=== PATIENT | male | born 1960 | race Caucasian/White ===

== ENCOUNTER 2025-01-27 12:13 | Outpatient (REF) | payer OTHER, SELFPAY ==
[2025-01-27 12:35] LABS: MANUAL DIFF FLAG NO
[2025-01-27 13:13] LABS: Hematocrit 42.8 % (42.0-52.0); Hemoglobin 14.4 g/dl (14.0-18.0); Imm Gran Abs Auto 0.02 X10*3/uL (0.00-0.03); Imm Gran Pct Auto 0.3 % (0.0-0.4); Lymphocytes Absolute Auto 2.9 X10*3/uL (1.2-4.9); Mean Corpuscular HGB Conc 33.6 g/dl (31.0-36.0); Mean Corpuscular Hemoglobin 29.9 pg (27.0-33.0); Mean Corpuscular Volume 89.0 fL (80.0-98.0); NRBC Abs Auto 0.000 X10*3/uL (0.0-0.012); NRBC Pct Auto 0.0 /100WBC (0.0-0.2); Platelet Count 308 X10*3/uL (160-400); Red Blood Count 4.81 X10*6/uL (4.60-5.80); White Blood Count 6.8 X10*3/uL (4.8-10.8)
[2025-01-27 13:43] LABS: Alanine Aminotransferase 15 U/L (0-40); Albumin Level 4.4 g/dL (3.5-5.0); Alkaline Phosphatase 82 U/L (39-117); Anion Gap 13 (12-20); Aspartate Amino Transferase 20 U/L (5-37); Blood Urea Nitrogen 24 mg/dL (9-16); Calcium 9.5 mg/dL (8.4-10.2); Carbon Dioxide 22 mmol/L (22-29); Chloride 108 mmol/L (96-108); Cholesterol 205 mg/dL (<200); Estimated Glomerular Filt Rate > 60; HDL Cholesterol 38 mg/dL (>40); Potassium 4.5 mmol/L (3.3-5.1); Sodium 138 mmol/L (135-145); Total Protein 7.3 g/dL (6.5-8.0); Triglycerides 163 mg/dL (<150)
[2025-01-27 14:02] LABS: PSA,Total (Free>4and<10) 0.81 ng/mL (0.00-4.00)
== END 2025-01-27 12:14 | disposition home or self-care (01) ==
LOC: HO.LAB 12:13
PROVIDERS: PCP Internal Medicine Medical Oncology; Visit Provider Internal Medicine Medical Oncology
DX: Z00.00 Encounter for general adult medical examination without abnormal findings (principal); I10 Essential (primary) hypertension; E78.2 Mixed hyperlipidemia; E66.3 Overweight; M25.552 Pain in left hip; R35.1 Nocturia
CPT/HCPCS: 36415; 80053; 80061; 84153; 85025

== ENCOUNTER → 2025-02-28 12:54 | Day surgery (SDC) | payer OTHER, SELFPAY ==
--- OUTSIDE RECORDS SUMMARY | 2025-02-02 14:21 | XMS_ITS | Patient Health Record ---
Author Organization Sudhakar Gonzalez III, MD Address [address] [place] [address] Care Team Providers Care Pullman Car Clerk Name Role Phone Sudhakar Gonzalez Primary Care Provider Allergies Allergen (clinical drug ingredient) Drug/Non Drug [...] 0.2 - 1.3 BLD Positive Negative - Complete Blood Count Auto Di ff Reviewed date:02/01/2025 09:20:46 AM Interpretation: Performing Lab:[facility], [address] [place] [phone] Notes/Report: White Blood Count 6.8 4.8-10.8 X10*3/uL Red Blood Count 4.81 4.60-5.80 X10*6/uL Hemoglobin 14.4 14.0-18.0 g/dl Hematocrit 42.8 42.0-52.0 % Mean Corpuscular Volume 89.0 80.0-98.0 fL Mean Corpuscular Hemoglobin 29.9 27.0-33.0 pg Mean Corpuscular HGB Conc 33.6 31.0-36.0 g/dl Red Cell Distribution Width 12.6 11.0-16.0 % Platelet Count 308 160-400 X10*3/uL Mean Platelet Volume 9.4 9.4-12.4 fL Neutrophils Percent Auto 43.9 45-73 % Imm Gran Pct Auto 0.3 0.0-0.4 % Lymphocytes Percent Auto 43.3 20-40 % Monocytes Percent Auto 9.5 2-11 % Eosinophils Percent Auto 2.1 0-4 % Basophils Percent Auto 0.9 0-2 % NRBC Pct Auto 0.0 0.0-0.2 /100WBC Neutrophils Absolute Auto 3.0 2.0-8.3 x10*3/u L Imm Gran Abs Auto 0.02 0.00-0.03 X10*3/uL Lymphocytes Absolute Auto 2.9 1.2-4.9 X10*3/u L Monocytes Absolute Auto 0.6 0.1-1.2 X10*3/uL Eosinophils Absolute Auto 0.1 0.0-0.4 X10*3/u L Basophils Absolute Auto 0.1 0.0-0.2 X10*3/uL NRBC Abs Auto 0.000 0.0-0.012 X10*3/uL Comprehensive Irons. Panel Fa st Reviewed date:02/01/2025 09:20:46 AM Interpretation: Performing Lab:[facility], [address] [place] [phone] Notes/Report: Sodium 138 135-145 mmol/L Potassium 4.5 3.3-5.1 mmol/L Chloride 108 96-108 mmol/L Carbon Dioxide 22 22-29 mmol/L Anion Gap 13 12-20 Blood Urea Nitrogen 24 9-16 mg/dL Creatinine 0.92 0.5-1.4 mg/dL Estimated Glomerular Filt Rate > 60 Chronic Kidney Disease: Estimated GFR < 60 mL/min/1.73m2 Severe Kidney Disease: Estimated GFR < 15 mL/min/1.73m2 Glucose Fasting 91 60-99 mg/dL Calcium 9.5 8.4-10.2 mg/dL Bilirubin Total 0.6 0.0-1.0 mg/dL Aspartate Amino Transferase 20 5-37 U/L Alanine Aminotransferase 15 0-40 U/L Total Protein 7.3 6.5-8.0 g/dL Albumin Level 4.4 3.5-5.0 g/dL Alkaline Phosphatase 82 39-117 U/L Lipid Panel Reviewed date:02/01/2025 09:20:46 AM Interpretation: Performing Lab:[facility], [address] [place] [phone] Notes/Report: Triglycerides 163 <150 mg/dL Desirable Triglyceride: less than 150 mg/dL Borderline High Triglyceride 150-199 mg/dL High Triglyceride: 200-499 mg/dL Very High Triglyceride: greater than or equal to 5OO mg/dL Cholesterol 205 <200 mg/dL Desirable Cholesterol: less than 200 mg/dL Borderline High Cholesterol: 200-239 mg/dL High Cholesterol: greater than 239 mg/dL LDL Cholesterol Calculated 135 <100 mg/dL Desirable LDL: less than 100 mg/dL Near Optimal/Above Optimal LDL: 110-129 mg/dL Borderline High LDL: 130-159 mg/dL High LDL: 160-189 mg/dL Very High LDL: greater than or equal to 190 mg/dL HDL Cholesterol 38 >40 mg/dL Desirable HDL: greater than 40 mg/dL Note: This HDL assay may give artificially low results in patients with liver disease. PSA,Total (Free>4and<10) Reviewed date:02/01/2025 09:20:46 AM Interpretation: Performing Lab:[facility], [address] [place] [phone] Notes/Report: PSA,Total (Free>4and<10) 0.81 0.00-4.00 ng/mL A Free PSA was not performed: The percentage of Free PSA can be used to enhance the differentiation of prostate cancer from benign prostatic disease in subjects whose PSA levels are between 4.0 and 10.0 ng/mL. For subjects whose PSA levels are below 4.0 or above 10.0 ng/mL, the risk of prostate cancer is determined on the basis of the PSA alone. Therefore the % Free PSA is recommended only for those subjects whose PSA levels are between 4.0 and 10.0 ng/mL. PSA methodology: Pimentel Alinity i Chemiluminescent Microparticle Immunoassay (CMIA) Reason For Referral Reason evaluate and treatme nt ? surgery needed left hip pain Diagnosis 1 Left hip pain (M25.5 52) Referral Organization Sudhakar Gonzalez III, MD Referring Provider First Name Sudhakar Referring Provider Last Name Carlos Referring Provider Speciality Internal M edicine Referred Provider Ramon Espino [facility] Referred Provider Specialty Orthopedic S urgery General Notes Mayra Gates 11/14/2024 09:35:21 AM > Referral, covered sheet, progress note faxed. Referral Priority Routine Referral Appointment Date 01/02/2025 Reason screening colonoscop y over due Diagnosis 1 Colon cancer screeni sudhakar (Z12.11) Referral Organization Sudhakar Gonzalez III, MD Referring Provider First Name Sudhakar Referring Provider Last Name Carlos Referring Provider Speciality Internal M edicine Referred Provider Dmitri Gao Referred Provider Specialty Gastroentero logy General Notes S Sho CONTENT DIRECTOR 11/08 02:54:54 PM > I called Dr Gao office made patient appt for 02/02/2025 T 3:15PM with Dr Gao for consultation then the coloscopy will be scheduled / appt information called and mailed to patient Referral Priority Routine Referral Appointment Date 02/02/2025 Medications Medication SIG (Take, Route, Frequency, Duration) Notes Start Date End Date Status Albuterol Sulfate HFA 108 (90 Base) MCG/ACT 1 puff as needed Inhalation every 4 hrs 11/08/2019 Active Simvastatin 40 MG 1 tablet Orally in t he evening for 90 days Active Lisinopril 10 MG TAKE 1 TABLET BY MERT TH EVERY DAY Active Viagra 100 MG 1 tablet as needed O rally Once a day for 30 days Active Primatene Mist 0.125 MG/ACT 2 puffs Inhalation 6 hours As needed Active Immunizations Vaccine Route Administration Date Status Comme nts COVID PFIZER Unknown 10/13/2020 Administered COVID PFIZER Unknown 09/20/2020 Administered COVID 19 Moderna Unknown 06/12/2021 Administered Social History Tobacco Use: Social History Observation Description Date Details (start date - stop date) Former Smoker NA - NA Tobacco Control (Standard) Question Answer Notes Tobacco use: Former smoker How long has it been since you last smoked? Grea ter than 10 years Additional Findings: Tobacco non-user Ex-cigaret te smoker Problems Problem Type SNOMED Code ICD Code Onset Dates Problem Status W/U Status Risk Notes Problem 3221758 Former smoker (Z87.891) Active confirmed He has a strategy to prevent relapse in times of stress and illness. We discussed this at some length today. Problem 714830278 Overweight (E66.3) Active confirmed He has lost 12 pounds since his last visit and his body mass index is 27. We discussed ways progress her weight loss could be continued. We reviewed the elements of a healthy diet and exercise. Problem 04159363 Left hip pain (M25.552) Active confirmed I have referred him back to the orthopedic service to consider a left hip replacement. Problem 293816975 Mixed hyperlipidemia (E78.2) Active confirmed Comprehensive blood work with a fasting lipid profile has been ordered. We discussed the elements of a healthy diet today. Problem 779841578 Nocturia (R35.1) Active confirmed Problem Erectile dysfunction, unspecified erectile dysfunction type (N52.9) Active confirmed This problem has been addressed and he is responding to oral medication. Problem 10042726 Essential hypertension (I10) Active confirmed His blood pressure is currently in the normal range. He has lost 12 pounds. I recommended aggressive weight loss and sodium restriction. No change in his medications as necessary today. Problem 884528836 Mild intermittent asthma without complication (J45.20) Active confirmed He has used his inhaler occasionally but he is comfortable most of the day. No change in his regimen as needed. 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 He will let me know if this becomes an issue. Problem 829109649 History of left inguinal hernia (Z98.890) Active confirmed No hernia was detected today on the examination. Vital Signs Heart Rate 73 /min 11/08/2024 Temperature 98.2 degrees Fahrenheit 11/08/2024 Blood pressure diastolic 79 mm Hg 11/08/2024 Height 68 in 11/08/2024 Blood pressure systolic 133 mm Hg 11/08/2024 Weight 182 lbs 11/08/2024 BMI 27.67 kg/m2 11/08/2024 Encounters Encounter Location Date Provider Diagnosis Sudhakar Gonzalez III, MD [address] [place] [address] [place], [place] [address] 11/08/2024 Sudhakar Gonzalez Essential hypertensi on I10 ; Left hip pain M25.552 ; Mixed hyperlipidemia E78.2 ; Overweight E66.3 ; Nocturia R35.1 ; Erectile dysfunction, unspecified erectile dysfunction type N52.9 ; Mild intermittent asthma without complication J45.20 ; Spondylosis of cervical region without myelopathy or radiculopathy M47.812 ; Former smoker Z87.891 and History of left inguinal hernia Z98.890 Sudhakar Gonzalez III, MD [address] [place] [address] [address] [place], [place] [address] 10/18/2024 Sudhakar Gonzalez Assessments Encounter Date Diagnosis (ICD Code) Assessment Notes Treat ment Notes Treatment Clinical Notes 11/08/2024 Left hip pain (ICD-1 0 - M25.552) I have referred him back to the orthopedic service to consider a left hip replacement. 11/08/2024 Essential hypertension (ICD-10 - I10) His blood pressure is currently in the normal range. He has lost 12 pounds. I recommended aggressive weight loss and sodium restriction. No change in his medications as necessary today. 11/08/2024 Mixed hyperlipidemia (ICD-10 - E78.2) Comprehensive [...] today on the examination. Plan Of Treatment Pending Test Test Name Order Date PROFILE, FASTING (COMPREHENSIVE METABOLI C) 12/21/2018 PROFILE, FASTING (COMPREHENSIVE METABOLI C) 12/20/2019 PROFILE, FASTING (COMPREHENSIVE METABOLI C) 11/08/2024 PROFILE, FASTING (COMPREHENSIVE METABOLI C) 05/02/2019 PROFILE, RANDOM (COMPREHENSIVE METABOLIC ) 02/06/2020 LIPID PANEL 05/02/2019 LIPID PANEL 02/06/2020 LIPID PANEL 12/21/2018 LIPID PANEL 12/20/2019 PSA, TOTAL 12/20/2019 PSA, TOTAL 11/08/2024 CBC w DIFF 12/20/2019 CBC w DIFF 11/08/2024 CBC w DIFF 05/02/2019 CBC w DIFF 02/06/2020 CBC w DIFF 12/21/2018 XR CHEST 2 VIEW PA & LAT 11/08/2024 Lipid Panel 11/08/2024 ECG 12 lead EKG 11/08/2024 Next Appt Details Provider Name:Sudhakar Gonzalez, 02/06/2025 02:30:00 PM, [address] [place] [address] , [address], [place], [address], Insurance Providers Payer Name Payer Address Payer Phone Subscriber Number Group Number Insured Name Patient Relationship to Insured Coverage Start Date Coverage End Date [employer] [address] [address] [place] [address] [id number] Julia Lopez Spouse - patient is the spouse of the insured Medical (General) History Medical History History ICD Code asthma essential hypertension mixed hyperlipidemia cervical spondylosis erectile dysfunction 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 BMI 27 history of prepared left inguinal hernia former smoker colonoscopy Surgical History Surgery Date(Month/Year) colonoscopy, [facility], Dr. Dmitri Gao, negative findings 2017 right hip replacement, [facility], Dr. Rubio, aseptic necrosis left inguial hernia repair, [facility], Dr. Allie Francis
--- OUTSIDE RECORDS SUMMARY | 2025-02-02 14:22 | XMS_ITS | Patient Health Record ---
Author Organization [facility] Address [address] [place] [address] Care Team Providers Care Clothes Ironer Name Role Phone Sudhakar Gonzalez MD Primary Care Provider UnavailDmitri Bernstein Jr Unavailable Allergies Allergen (clinical drug ingredient) Drug/Non Drug Allergy documented on EMR Reaction Allergy Type Onset Date Status cats (uncoded) Unknown Allergy Activ e Reason For Referral No Information Medications Medication SIG (Take, Route, Fr equency, Duration) Notes Start Date End Date Status Simvastatin 40 MG TAKE 1 TABLET EVERY EVENING Oral for 90 Active Lisinopril 10 MG TAKE 1 TABLET DAILY Oral for 90 Active Immunizations Vaccine Route Administration Date Status Comme nts Influenza Unknown 09/30/2018 Refused Influenza Unknown 02/02/2025 Refused Social History Tobacco Use: Social History Observation Description Date Details (start date - stop date) Never Smoker NA - NA Tobacco Use/Smoking Question Answer Notes Patient is a nonsmoker Alcohol Screen Question Answer Notes Did you have a drink contain ing alcohol in the past year? Yes How often did you have a dri nk containing alcohol in the past year? Never (0 point) How many drinks did you have on a typical day when you were drinking in the past year? 1 or 2 drinks (0 point) How often did you have 6 or more drinks on one occasion in the past year? Never (0 point) Points 0 Interpretation Negative Problems Problem Type SNOMED Code ICD Code Onset Dates Problem Status W/U Status Risk Notes Problem 254184491 Colon cancer screening (Z12.11) Active confirmed Problem 409718209 Encounter for other preprocedural examination (Z01.818) Active confirmed Vital Signs Temperature 98.6 degrees Fahrenheit 02/02/2025 Blood pressure diastolic 01 mm Hg 02/02/2025 Height 68 in 02/02/2025 Blood pressure systolic 001 mm Hg 02/02/2025 Weight 188 lbs 02/02/2025 BMI 28.58 kg/m2 02/02/2025 Encounters Encounter Location Date Provider Diagnosis [facility] [address] [place] [address] 02/02/2025 Dmitri Gao Jr Colon cancer screening Z12.11 and Encounter for other preprocedural examination Z01.818 Assessments Encounter Date Diagnosis (ICD Code) Assessment Notes Treatment Notes Treatment Clinical Notes Section Notes 02/02/2025 Colon cancer screening (ICD-10 - Z12.11) 02/02/2025 Encounter for other preprocedural examination (ICD-10 - Z01.818) Plan Of Treatment Future Test Test Name Order Date COLONOSCOPY 09/30/2018 COLONOSCOPY 02/02/2025 Next Appt Details Provider Name:Dmitri vasquez Jr, 02/28/2025 02:10:00 PM, [address] [place] [address] , [place], [phone], Insurance Providers Payer Name Payer Address Payer Phone Subscriber Number Group Number Insured Name Patient Relationship to Insured Coverage Start Date Coverage End Date [employer] (No Referra l) [address] [address] [place] [address] [id number] ROXANA DRUMMOND Self - patient is the insured 2023 5 Medical (General) History Medical History History ICD Code hypertension elevated cholesterol Surgical History Surgery Date(Month/Year) hip replacement, right left inguinal herniorrhaphy
--- OUTSIDE RECORDS SUMMARY | 2025-02-02 14:22 | XMS_ITS | Clinical Summary ---
Author Organization [facility] Address [address] [facility] [address] [place] [address] Phone Care Team Providers Care E M Assembler Name Role Phone Sudhakar Gonzalez MD Primary Care Provider [phone] Allergies No known active allergies Medications lisinopril (PRINIVIL,ZESTR IL) 10 MG tablet Take 1 tablet by mouth every morning. 09/04/2023 Active simvastatin (ZOCOR) 40 MG tablet Take 40 mg by mouth nightly at bedtime. 09/15/2023 Active Active Problems No known active problems Social History Tobacco Use Types Packs/Day Years Used Date Smoking Tobacco: Never Smokeless Tobacco: Never Tobacco Cessation:Counseling Given: Not Answered Education Answer Date Recorded Are you interested in more education? Not on gianni e 09/21/2023 Are you concerned about learning? Not on file 09/21/2023 No 09/21/2023 No 09/21/2023 Digital Access Answer Date Recorded No 09/21/2023 No 09/21/2023 Reliable internet access at home? Not on file 09/21/2023 Device with a working camera? Not on file Sex and Gender Information Value Date Recorded Sex Assigned at Not on file Legal Sex Male 9:51 PM EDT Gender Identity Not on file Sexual Orientation Not on file Last Filed Vital Signs Vital Sign Reading Time Taken Comments Blood Pressure 162/95 09/21/2023 6:15 PM EDT Pulse 66 09/21/2023 6:15 PM EDT Temperature 36.6 C (97.8 F) 09/21/2023 6:15 PM EDT Respiratory Rate 18 09/21/2023 6:15 PM EDT Oxygen Saturation 97% 09/21/2023 6:15 PM EDT Inhaled Oxygen Concentration - - Weight - - Height - - Body Mass Index - - Plan of Treatment Health Maintenance Due Date Last Done Comments Adult Td,Tdap Booster 1960 CREATININE LEVEL 1960 LIPID PANEL 1958 POTASSIUM LEVEL 1958 DEPRESSION SCREENING 1970 HEPATITIS C SCREENING 02/21/1976 COLOGUARD 2003 COLONOSCOPY 2003 COLORECTAL CANCER SCREENING 2003 FIT TEST 2003 FOBT 2003 SIGMOIDOSCOPY 2003 VIRTUAL COLONOSCOPY 2003 PNEUMOCOCCAL VACCINES (50+ years) (1 of 1 - PCV) 02/21/2008 ZOSTER VACCINES (1 of 2) 02/21/2008 COVID-19 VACCINE (4 - 2023-2 5 season) 2024 06/12/2021, 10/13/2020, 09/20/2020 RSV VACCINE (1 - 1-dose 75+ series) 2033 SMOKING STATUS SCREENING (On ce After 26 Yrs) Completed 09/21/2023 HEPATITIS A VACCINES Aged Out No long er eligible based on patient's age to complete this topic HIB VACCINES Aged Out No longer eligi ble based on patient's age to complete this topic MENINGOCOCCAL VACCINES (ACWY) Aged Out No longer eligible based on patient's age to complete this topic MENINGOCOCCAL VACCINES (B) Aged Out N o longer eligible based on patient's age to complete this topic Medical Devices Not on file Insurance [facility] AETNA PPO [facility] [employer] PPO [facility]PO [facility] [employer]ET[employer] PPO [facility] AETNA PPO [employer] Care Teams E M Assembler Relationship Specialty Start Date End Date Sudhakar Gonzalez MD [address] [place] [id number] PCP - General Medical Oncology 09/21/23 Additional Source Comments The information contained in this document represents components of the legal health record. It is not the complete legal health record.[facility]
[2025-02-24 14:01] VITALS: BMI 28.6
--- NOTE | 2025-02-27 12:19 | HO.ANESPROP2 ---
HPI - Anesthesia Eval Consult details Narrative: 65yo M for Colonoscopy [facility] Past Medical History Medical History (Updated 02/24/25 @ 14:02 by Susan Stoddard RN) Elevated cholesterol HTN (hypertension) Surgical History Surgical History (Updated 02/24/25 @ 14:03 by Susan Stoddard RN) H/O colonoscopy History of total right hip replacement Hx of left inguinal hernia repair Social History Social History (Updated 02/24/25 @ 14:02 by Susan Stoddard RN) Household Members: Spouse Meds Allergies Allergy/AdvReac Type Severity Reaction Status Date / Time No Known Allergies Allergy Mild NONE Unverified 03/22/20 17:33 Home Medications ?Medication ?Instructions ?Recorded ?Confirmed ?Last Taken ?Type lisinopril 10 mg tablet 10 mg PO DAILY 02/24/25 02/24/25 Unknown History sildenafil 100 mg tablet 100 mg PO DAILY 02/24/25 02/24/25 Unknown History simvastatin 40 mg tablet 40 mg PO BEDTIME 02/24/25 02/24/25 Unknown History Exam Height,Weight and Vital Signs: Height 5 ft 8 in Weight 85.275 kg Assessment and Plan Assessment Anesthesia Assessment: Chart Reviewed
== END ==
LOC: HO.SSS 12:55
PROVIDERS: PCP Internal Medicine Medical Oncology; Visit Provider Internal Medicine Gastroenterology
DX: Z12.11 Encounter for screening for malignant neoplasm of colon (principal); Z53.8 Procedure and treatment not carried out for other reasons; I10 Essential (primary) hypertension; E78.00 Pure hypercholesterolemia, unspecified; Z79.899 Other long term (current) drug therapy; Z98.890 Other specified postprocedural states

== ENCOUNTER 2025-03-13 15:56 | Outpatient (REF) | payer OTHER, SELFPAY ==
--- OUTSIDE RECORDS SUMMARY | 2024-11-08 10:00 | XMS_ITS ---
Author Organization Sudhakar Gonzalez III, MD Address [address] [place] [place] [address] Care Team Providers Care Cleat Thrower Name Role Phone Sudhakar Gonzalez Primary Care Provider [phone] Allergies Allergen (clinical drug ingredient) Drug/Non Drug [...] Provider Speciality Internal M edicine Referred Provider [facility], [facility] Referred Provider Specialty Orthopedic S urgery General Mayra Shannon 11/14/2024 09:35:21 AM > Referral, covered sheet, progress note faxed. Referral Priority Routine Referral Appointment Date 01/02/2025 Reason screening colonoscop y over due Diagnosis 1 Colon cancer screeni ng (Z12.11) Referral Organization Sudhakar Gonzalez III, MD Referring Provider First Name Sudhakar Referring Provider Last Name Gonzalez Referring Provider Speciality Internal M edicine Referred Provider Dmitri Gao Referred Provider Specialty Gastroentero marianna General Notes Sho Ellison MICROBIOLOGY MANAGER 11/08 02:54:54 PM > I called Dr [...] Never (0 point) Points 2 Interpretation Negative Problems Problem Type SNOMED Code ICD Code Onset Dates Problem Status W/U Status Risk Notes Problem 691569333 Nocturia (R35.1) Active confirmed Vital Signs Temperature 98.2 degrees Fahrenheit 11/09/19 25 Blood pressure systolic 133 mm Hg 11/09/19 25 Blood pressure diastolic 79 mm Hg 025 Heart Rate 73 /min 11/08/2024 Height 68 in 11/08/2024 Weight 182 lbs 11/08/2024 BMI 27.67 kg/m2 11/08/2024 Encounters Encounter Location Date Provider Diagnosis Sudhakar Gonzalez III, MD [address] [place] [address] [address] [place], [place] [address] 11/08/2024 Sudhakar Gonzalez Essential hypertensi on I10 [...] needed left hip pain, [facility] [place] 11/08/2024 11/08/2024, joannein g colonoscopy over due, Dmitri Gao Next Appt Details Follow Up: after patient goe s to [facility], Reason: OV review labs cxr ekg Provider Name:Sudhakar Gonzalez, 04/10/2025 03:00:00 PM, [address] [place] [address] [address], [place], [address], Provider Name:Sudhakar Gonzalez, 11/10/2025 03:30:00 PM, [address] [place] [address] [place], [address], Progress Notes * Rodney DRUMMONDDOB:[birth year] (64 yo M)Acc No.[id number]:11/08/2024 Progress Notes Patient: Rodney ESPARZA Provider: Alphonso Gonzalez MD :1960 A ge:64 Y S ex:Male Date:11/08/2024 [id number] Subjective: * Chief Complaints: * A nnual [...] previous surgery was done by orthopedics at [facility]. His last colonoscopy was at [facility], [place]. He has been referred to GI and [...] Surgical History: l eft inguial hernia repair, [facility], [place], Dr. Allie Francis 2007right hip replacement, [facility], Dr. Rubio, aseptic necrosis colonoscopy, [facility], [place], Dr. Dmitri Gao, negative findings 2017 * [...] P oints 2 I nterpretation N egative H stevo was born at [facility] in [place], [place]. He has been to Julia for 18 years. They have no children but he has 4 children from a previous marriage. He is a [employer] working in [employer]. * Medications: T akingPrimatene Mist 0.125 MG/ACT [...] Examination: G eneral Examination: GENERAL APPEARANCE: p asael, well nourished, well developed, in no acute [...] fasting lipid profile has been ordered. W e discussed the elements of a healthy diet [...] Follow Up: a fter patient goes to [facility] (Reason: OV review labs cxr ekg) * Images: * Sign off status: Completed true * Provider: Alphonso Gonzalez MD Date: 0 11/08/2024 Generated for Prosperi ng/Binh/eTransmitting on: 0 03/13/2025 06:39 PM EDT History and Physical Notes * [...] motion LYMPH NODES: no enlarged lymph no regsi,spleen normal RECTAL EXAM: not examined PSYCH: alert, oriented ORAL CAVITY: normal, unremarkable Consultation Request Notes Referral Date Referring Provider Referred Provider Not es 11/08/2024 Sudhakar Gonzalez [place] [facility] evaluate and treatment ? surgery needed left hip pain 11/08/2024 Sudhakar Gonzalez Bernard screening colonoscopy over due
--- OUTSIDE RECORDS SUMMARY | 2024-12-21 12:45 | XMS_ITS ---
Author Organization Sudhakar Gonzalez III, MD Address [address] [place] [address] Care Team Providers Care Landscape Foreman Name Role Phone Sudhakar Gonzalez Primary Care Provider REASON FOR VISIT Follow-up Encounters Encounter Location Date Provider Diagnosis Sudhakar Gonzalez III, MD [address] [place] [address] [place] [address] 12/21/2024 Sudhakar Gonzalez Plan Of Treatment Next Appt Details Provider Name:Sudhakar Gonzalez, 04/10/2025 03:00:00 PM, [address] [place] [address] [place], [address], Provider Name:Sudhakar Gonzalez, 11/10/2025 03:30:00 PM, [address] [place] [address] [place], [address], Progress Notes * Rodney DRUMMONDDOB:[birth year] (65 yo M)Acc No.[id number]:12/21/2024 Progress Notes Patient: Reina Rodney EID Provider: Alphonso Gonzalez MD :1960 A ge:64 Y S ex:Male Date:12/21/2024 Address:[address] [place], [place] [id number] Subjective: * Chief Complaints: * 1 . [...] for Efren de la fuente/Binh/Yolanda on: 0 03/13/2025 06:39 PM EDT
--- OUTSIDE RECORDS SUMMARY | 2025-01-10 13:00 | XMS_ITS ---
Author Organization Sudhakar Gonzalez III, MD Address [address] [place] [address] Care Team Providers Care Curing Bin Operator Name Role Phone Sudhakar Gonzalez Primary Care Provider [phone] REASON FOR VISIT Follow-up Encounters Encounter Location Date Provider Diagnosis Sudhakar Gonzalez III, MD [address] [place] [address] [place] [address] 01/10/2025 Sudhakar Gonzalez Plan Of Treatment Next Appt Details Provider Name:Sudhakar Gonzalez, 04/10/2025 03:00:00 PM, [address] [place] [address] [place], [address], Provider Name:Sudhakar Gonzalez, 11/10/2025 03:30:00 PM, [address] [place] [address] [place], [address], Progress Notes * Rodney DRUMMONDDOB:[birth year] (65 yo M)Acc No.[id number]:01/10/2025 Progress Notes Patient: Reina Rodney EID Provider: Alphonso Gonzalez MD :1960 A ge:64 Y S ex:Male Date:01/10/2025 Address:[address] [place], [place] [phone] Subjective: * Chief Complaints: * 1 . [...]
--- OUTSIDE RECORDS SUMMARY | 2025-02-06 10:30 | XMS_ITS ---
Author Organization Sudhakar Gonzalez III, MD Address [address] [place] [address] [place] [phone] Care Team Providers Care Geospatial Intelligence Analyst Name Role Phone Sudhakar Gonzalez Primary Care [...] Date Provider Diagnosis Sudhakar Gonzalez III, MD [address] [place] [address] [place] [phone] 02/06/2025 Sudhakar Gonzalez Essential hypertensi on I10 [...] Details Provider Name:Sudhakar Mayerrne, 04/10/2025 03:00:00 PM, [address] [place] [address] [address], [place], [phone], Provider Name:Sudhakar Carlos, 11/10/2025 03:30:00 PM, [address] [place] [address] [address], [place], [address], Progress Notes * Rodney DRUMMONDDOB:[birth year] (65 yo M)Acc No.[id number]:02/06/2025 Progress Notes Patient: Reina LUOHEBER Rodney Provider: Alphonso Gonzalez MD :1960 A ge:64 Y S ex:Male Date:02/06/2025 Address:[address] [place], [place] [id number] Subjective: * Chief Complaints: * 1 . [...] the right hip, total knee replacement 2014, [facility], overweight. BMI 27, History of prepared left inguinal hernia, Former smoker, Colonoscopy. * Surgical History: l eft inguial hernia repair, [facility], Dr. Allie Francis , right hip replacement, [facility], Dr. Rubio, aseptic necrosis , colonoscopy, [facility], Dr. Dmitri Gao, negative findings 2017. * [...] x-cigarette smoker Estela whiteside was born at [facility] in [place], [place]. He has been to Julia for 18 years. They have no children but he has 4 children from a previous marriage. He is a [employer] working in [place]. * Medications: Tanesha mai Lisinopril 10 MG [...] Generated for Efren de la fuente/Binh/Tyraitting on: 03/13/2025 06:39 PM EDT History and Physical [...]
--- OUTSIDE RECORDS SUMMARY | 2025-02-28 08:10 | XMS_ITS ---
Author Organization [facility] Address [address] [place] [phone] Care Team Providers Care Physics Technical Officer Name Role Phone Carlos WELLER, Sudhakar Primary Care Provider Dmitri Villatoro Jr REASON FOR VISIT screening Encounters Encounter Location Date Provider Diagnosis [facility] [address] [place] [phone] 02/28/2025 Dmitri Gao Jr Plan Of Treatment No Information Progress Notes * ROXANA DRUMMOND EDOB:1959 (65 yo M)Acc No.[id number]:02/28/2025 COLON WITH MAC Patient: Reina LUOHEBER ROXANA Conrad Provider: Gali Gao MD :1960 A ge:65 Y S ex:Male Date:02/28/2025 Address:[address] [place], [place] [id number] Pcp:Sudhakar Gonzalez MD Subjective: * Chief Complaints: * 1 . Screening. * Medical History: Objective: * Vitals: Assessment: Plan: * Treatment: * * The named appointment provid er may or may not be the originator of this progress note, and it is not deemed complete until electronically signed by the appointment provider. Sign off status: Pending * Provider: Gali Gao MD Date: 0 02/28/2025 Generated for Printi ng/Faxing/eTransmitting on: 0 03/13/2025 06:40 PM EDT
--- OUTSIDE RECORDS SUMMARY | 2025-03-13 11:30 | XMS_ITS ---
Author Organization Sudhakar Gonzalez III, MD Address [address] [place] [address] Care Team Providers Care Magnetic Tester Name Role Phone Sudhakar Gonzalez Primary Care Provider Allergies Allergen (clinical drug ingredient) Drug/Non Drug Allergy documented on EMR Reaction Allergy Type Onset Date Status Pollen (e.g. tree, grass) Unknown Allergy Active REASON FOR VISIT Clearance for Left Hip replacement at [facility] on 03/17/2025 Medications Medication SIG (Take, Route, Frequency, Duration) [...] has it been since you last smoked? Gerardo ter than 10 years Additional Findings: Tobacco non-user Ex-cigaret te smoker Vital Signs Temperature 97.3 degrees Fahrenheit 03/13/20 25 Blood pressure systolic 136 mm Hg 03/13/20 25 Blood pressure diastolic 80 mm Hg 025 Heart Rate 75 /min 03/13/2025 Height 68 in 03/13/2025 Weight 191 lbs 03/13/2025 BMI 29.04 kg/m2 03/13/2025 Oximetry 99 % 03/13/2025 Encounters Encounter Location Date Provider Diagnosis Sudhakar Gonzalez III, MD [address] [place] [address] [place] [address] 03/13/2025 Sudhakar Carlos Essential hypertensi on I10 ; Pain of left hip M25.552 and Pre-op exam Z01.818 Assessments Encounter Date Diagnosis (ICD Code) Assessment Notes Treat ment Notes Treatment Clinical Notes 03/13/2025 Essential hypertension (ICD-10 - I10) His blood pressure is currently in the normal range. He has lost 12 pounds. I recommended aggressive weight loss and sodium restriction. No change in his medications as necessary today. 03/13/2025 Pain of left hip (ICD-10 - M25.552) 03/13/2025 Pre-op exam (ICD-10 - Z01.818) Plan Of Treatment Medication Medication Name Sig [...] (PTT) 2024 ECG 12 lead EKG 03/13/2025 Hemoglobin A1c 03/13/2025 Next Appt Details Follow Up: 4 Weeks, Reason: ov review labs Provider Name:Sudhakar Gonzalez, 04/10/2025 03:00:00 PM, [address] [place] [address] [address], [place], [phone], Provider Name:Sudhakar Gonzalez, 11/10/2025 03:30:00 PM, [address] [place] [address] [place], [address], Progress Notes * Jeanne DRUMMOND:[birth year] (65 yo M)Acc No.[id number]:03/13/2025 Patient: Rodney ESPARZA Provider: Alphonso Gonzalez MD :1960 A ge:65 Y S ex:Male Date:03/13/2025 Address:[address] [place] [address] Subjective: * Chief Complaints: * 1 . Clearance for Left Hip replacement at [facility] on 03/17/2025. * HPI: C OVID-19 Screening: left thr fridai marion, no sob nocp no palp, noct x1. Questions H ave you had any new [...] the right hip, total knee replacement 2014, [facility], overweight. BMI 27, History of repaired left inguinal hernia, Former smoker, Colonoscopy. * Surgical History: l eft inguial hernia repair, [facility], Dr. Allie Francis , right hip replacement, [facility], Dr. Rubio, aseptic necrosis , colonoscopy, [facility], Dr. Dmitri Gao, negative findings 2017. [...] x-cigarette smoker Estela whiteside was born at [facility] in [place], [place]. He has been to Julia for 18 years. They have no children but he has 4 children from a previous marriage. He is a [employer] working in [place]. * Medications: T aking Lisinopril 10 MG Tablet TAKE 1 TABLET [...] ollen (e.g. tree, grass). Objective: * Vitals: H t: 68, Wt:191, BMI:29.04, BP:136/80, HR:75, Temp:97.3, Oxygen sat %:99, Wt-k.64. * P ast Orders: L ab:Complete Blood Count Auto Diff (Order Date - 01/27/2025) (Collection Date & Time - 01/27/2025 12:34 PM) Value Reference Range White Blood Count 6.8 4.8-10.8 - X10*3/uL Red Blood Count 4.81 4.60-5.80 - X10*6/uL Hemoglobin 14.4 14.0-18.0 - g/dl Hematocrit 42.8 42.0-52.0 - % Mean Corpuscular Volume 89.0 80.0-98.0 - fL Mean Corpuscular Hemoglobin 29.9 27.0-33.0 - pg Mean Corpuscular HGB Conc 33.6 31.0-36.0 - g/ dl Red Cell Distribution Width 12.6 11.0-16.0 - % Platelet Count 308 160-400 - X10*3/uL Mean Platelet Volume 9.4 9.4-12.4 - fL Neutrophils Percent Auto 43.9 L 45-73 - % Imm Gran Pct Auto 0.3 0.0-0.4 - % Lymphocytes Percent Auto 43.3 H 20-40 - % Monocytes Percent Auto 9.5 2-11 - % Eosinophils Percent Auto 2.1 0-4 - % Basophils Percent Auto 0.9 0-2 - % NRBC Pct Auto 0.0 0.0-0.2 - /100WBC Neutrophils Absolute Auto 3.0 2.0-8.3 - x10* 3/uL Imm Gran Abs Auto 0.02 0.00-0.03 - X10*3/uL Lymphocytes Absolute Auto 2.9 1.2-4.9 - X10* 3/uL Monocytes Absolute Auto 0.6 0.1-1.2 - X10*3/ uL Eosinophils Absolute Auto 0.1 0.0-0.4 - X10* 3/uL Basophils Absolute Auto 0.1 0.0-0.2 - X10*3/ uL NRBC Abs Auto 0.000 0.0-0.012 - X10*3/uL L ab:Comprehensive [place]. Panel Fast (Order Date - 01/27/2025) (Collection Date & Time - 01/27/2025 12:34 PM) Value Reference Range Sodium 138 135-145 - mmol/L Bilirubin Total 0.6 0.0-1.0 - mg/dL Aspartate Amino Transferase 20 5-37 - U/L Alanine Aminotransferase 15 0-40 - U/L Total Protein 7.3 6.5-8.0 - g/dL Albumin Level 4.4 3.5-5.0 - g/dL Alkaline Phosphatase 82 39-117 - U/L Potassium 4.5 3.3-5.1 - mmol/L Chloride 108 96-108 - mmol/L Carbon Dioxide 22 22-29 - mmol/L Anion Gap 13 12-20 - Blood Urea Nitrogen 24 H 9-16 - mg/dL Creatinine 0.92 0.5-1.4 - mg/dL Estimated Glomerular Filt Rate > 60 - Glucose Fasting 91 60-99 - mg/dL Calcium 9.5 8.4-10.2 - mg/dL L ab:PSA,Total (Free>4and<10) (Order Date - 01/27/2025) (Collection Date & Time - 01/27/2025 12:34 PM) Value Reference Range PSA,Total (Free>4and<10) 0.81 0.00-4.00 - ng/ mL L ab:Lipid Panel (Order Date - 01/27/2025) (Collection Date & Time - 01/27/2025 12:34 PM) Value Reference Range Triglycerides 163 H <150 - mg/dL Cholesterol 205 H <200 - mg/dL LDL Cholesterol Calculated 135 H <100 - mg/dL HDL Cholesterol 38 L >40 - mg/dL * Examination: G eneral Examination: GENERAL [...] change in his medications as necessary today. 2 . P ain of left hip - M25.552 3 . P re-op exam - Z01.818? Plan: * Treatment: 2. P ain of left hip L AB: PROFILE, RANDOM (COMPREHENSIVE METABOLIC) L AB: CBC w DIFF L AB: PROTHROMBIN TIME (PT, INR) L AB: PARTIAL THROMBOPLASTIN TIME (PTT) L AB: Hemoglobin A1c I maging: ECG 12 lead EKG 3. P re-op exam L AB: PROFILE, RANDOM (COMPREHENSIVE METABOLIC) L AB: CBC w DIFF L AB: PROTHROMBIN TIME (PT, INR) L AB: PARTIAL THROMBOPLASTIN TIME (PTT) L AB: Hemoglobin A1c I maging: ECG 12 lead EKG 4. O thers Continue Lisinopril Tablet, 10 MG, TAKE 1 TABLET BY MOUTH EVERY DAY; C ontinue Simvastatin Tablet, 40 MG, 1 tablet, Orally, in the evening; C ontinue Primatene Mist Aerosol, 0.125 MG/ACT, 2 puffs, Inhalation, 6 hours As needed. * Procedure Codes: 9 4760 MEASURE BLOOD OXYGEN LEVEL * Follow Up: 4 Weeks (Reason: ov review labs) * Images: * The named appointment provid er may or may not be the originator of this progress note, and it is not deemed complete until electronically signed by the appointment provider. Sign off status: Pending * Provider: Alphonso Gonzalez MD Date: 0 03/13/2025 Generated for Efren de la fuente/Binh/Tyraitting on: 0 03/13/2025 06:39 PM EDT History [...]
[2025-03-13 16:17] LABS: MANUAL DIFF FLAG NO
[2025-03-13 17:15] LABS: Hematocrit 44.5 % (42.0-52.0); Hemoglobin 14.3 g/dl (14.0-18.0); Imm Gran Abs Auto 0.04 X10*3/uL (0.00-0.03); Imm Gran Pct Auto 0.4 % (0.0-0.4); Lymphocytes Absolute Auto 3.1 X10*3/uL (1.2-4.9); Mean Corpuscular HGB Conc 32.1 g/dl (31.0-36.0); Mean Corpuscular Hemoglobin 28.9 pg (27.0-33.0); Mean Corpuscular Volume 89.9 fL (80.0-98.0); NRBC Abs Auto 0.000 X10*3/uL (0.0-0.012); NRBC Pct Auto 0.0 /100WBC (0.0-0.2); Platelet Count 328 X10*3/uL (160-400); Red Blood Count 4.95 X10*6/uL (4.60-5.80); White Blood Count 9.0 X10*3/uL (4.8-10.8)
[2025-03-13 17:19] LABS: INTERNATIONAL NORM RATIO 0.9 (0.9-1.1); Prothrombin Time 10.6 SEC (10.9-12.4)
[2025-03-13 17:22] LABS: Partial Thromboplastin Time 29.2 SEC (26.7-34.1)
[2025-03-13 17:46] LABS: Alanine Aminotransferase 39 U/L (0-40); Albumin Level 4.9 g/dL (3.5-5.0); Alkaline Phosphatase 80 U/L (39-117); Anion Gap 15 (12-20); Aspartate Amino Transferase 34 U/L (5-37); Blood Urea Nitrogen 18 mg/dL (9-16); Calcium 9.8 mg/dL (8.4-10.2); Carbon Dioxide 23 mmol/L (22-29); Chloride 106 mmol/L (96-108); Estimated Glomerular Filt Rate > 60; Potassium 4.7 mmol/L (3.3-5.1); Sodium 139 mmol/L (135-145); Total Protein 8.0 g/dL (6.5-8.0)
--- OUTSIDE RECORDS SUMMARY | 2025-03-13 18:39 | XMS_ITS | Patient Health Record ---
Author Organization Sudhakar Gonzalez III, MD Address [address] [place] [address] Care Team Providers Care Chief Design Engineer Name Role Phone Sudhakar Gonzalez Primary Care Provider [phone] Allergies Allergen (clinical drug ingredient) Drug/Non Drug [...] ff Reviewed date:02/01/2025 09:20:46 AM Interpretation: Performing Lab:[facility], [address] [place] [phone] Notes/Report: White Blood Count 6.8 4.8-10.8 X10*3/uL [...] NRBC Abs Auto 0.000 0.0-0.012 X10*3/uL Comprehensive [place]. Panel Fa st Reviewed date:02/01/2025 09:20:46 AM Interpretation: Performing Lab:[facility], [address] [place] [phone] Notes/Report: Sodium 138 135-145 mmol/L Potassium 4.5 [...] Panel Reviewed date:02/01/2025 09:20:46 AM Interpretation: Performing Lab:[address] [address] Notes/Report: Triglycerides 163 <150 mg/dL Desirable Triglyceride: [...] (Free>4and<10) Reviewed date:02/01/2025 09:20:46 AM Interpretation: Performing Lab:[address] [address] Notes/Report: PSA,Total (Free>4and<10) 0.81 0.00-4.00 ng/mL A [...] Pimentel Alinity i Chemiluminescent Microparticle Immunoassay (CMIA) Complete Blood Count Auto Di ff (Not yet reviewed by provider) Interpretation: Performing Lab:[address] [phone] Notes/Report: White Blood Count 9.0 4.8-10.8 X10*3/uL Red Blood Count 4.95 4.60-5.80 X10*6/uL Hemoglobin 14.3 14.0-18.0 g/dl Hematocrit 44.5 42.0-52.0 % Mean Corpuscular Volume 89.9 80.0-98.0 fL Mean Corpuscular Hemoglobin 28.9 27.0-33.0 pg Mean Corpuscular HGB Conc 32.1 31.0-36.0 g/dl Red Cell Distribution Width 12.7 11.0-16.0 % Platelet Count 328 160-400 X10*3/uL Mean Platelet Volume 9.2 9.4-12.4 fL Neutrophils Percent Auto 54.0 45-73 % Imm Gran Pct Auto 0.4 0.0-0.4 % Lymphocytes Percent Auto 35.0 20-40 % Monocytes Percent Auto 7.7 2-11 % Eosinophils Percent Auto 2.3 0-4 % Basophils Percent Auto 0.6 0-2 % NRBC Pct Auto 0.0 0.0-0.2 /100WBC Neutrophils Absolute Auto 4.8 2.0-8.3 x10*3/u L Imm Gran Abs Auto 0.04 0.00-0.03 X10*3/uL Lymphocytes Absolute Auto 3.1 1.2-4.9 X10*3/u L Monocytes Absolute Auto 0.7 0.1-1.2 X10*3/uL Eosinophils Absolute Auto 0.2 0.0-0.4 X10*3/u L Basophils Absolute Auto 0.1 0.0-0.2 X10*3/uL NRBC Abs Auto 0.000 0.0-0.012 X10*3/uL Prothrombin Time INR (Not ye t reviewed by provider) Interpretation: Performing Lab:[facility], [address] [place] [phone] Notes/Report: Prothrombin Time 10.6 10.9-12.4 SEC INTERNATIONAL NORM RATIO 0.9 0.9-1.1 INTERNATIONAL NORMALIZED RATIO (INR) REFERENCE RANGES Reference Range For patients not on anticoagulant therapy: 0.9 - 1.1 INR ranges for oral anticoagulant therapy: For prevention and treatment of venous thrombosis and pulmonary embolism: 2.0 - 3.0 For acute myocardial infarction with aspirin therapy: 2.0 - 3.0 For acute myocardial infarction without aspirin therapy: 3.0 - 4.0 For patients with mechanical prosthetic heart valves: 2.5 - 3.5 Partial Thromboplastin Time (Not yet reviewed by provider) Interpretation: Performing Lab:[facility], [address] [place] [phone] Notes/Report: Partial Thromboplastin Time 29.2 26.7-34.1 SEC Comprehensive Met. Panel (No t yet reviewed by provider) Interpretation: Performing Lab:[facility], [address] [place] [phone] Notes/Report: Sodium 139 135-145 mmol/L Potassium 4.7 3.3-5.1 mmol/L Chloride 106 96-108 mmol/L Carbon Dioxide 23 22-29 mmol/L Anion Gap 15 12-20 Blood Urea Nitrogen 18 9-16 mg/dL Creatinine 0.88 0.5-1.4 mg/dL Estimated Glomerular Filt Rate > 60 Chronic Kidney Disease: Estimated GFR < 60 mL/min/1.73m2 Severe Kidney Disease: Estimated GFR < 15 mL/min/1.73m2 Glucose Random 79 60-115 mg/dL Calcium 9.8 8.4-10.2 mg/dL Bilirubin Total 0.6 0.0-1.0 mg/dL Aspartate Amino Transferase 34 5-37 U/L Alanine Aminotransferase 39 0-40 U/L Total Protein 8.0 6.5-8.0 g/dL Albumin Level 4.9 3.5-5.0 g/dL Alkaline Phosphatase 80 39-117 U/L Reason For Referral Reason evaluate and treatme nt ? surgery needed left hip pain Diagnosis 1 Left hip pain (M25.5 52) Referral Organization Sudhakar Gonzalez III, MD Referring Provider First Name Sudhakar Referring Provider Last Name Carlos Referring Provider Speciality Internal M edicine Referred Provider [place] Referred Provider Specialty Orthopedic S urgery General Notes DMayra 11/14/2024 09:35:21 AM > Referral, covered sheet, progress note faxed. Referral Priority Routine Referral Appointment Date 01/02/2025 Reason screening colonoscop y over due Diagnosis 1 Colon cancer screeni (Z12.11) Referral Organization Sudhakar Gonzalez III, MD Referring Provider First Name Sudhakar Referring Provider Last Name Gonzalez Referring Provider Speciality Internal M edicine Referred Provider Dmitri Gao Referred Provider Specialty Gastroentero logy General Notes Sho Ellison MARINE ELECTRICIAN APPRENTICE 11/08 02:54:54 PM > I called Dr [...] needed Inhalation every 4 hrs 11/08/2019 Active Immunizations Vaccine Route Administration Date Status [...] Problem Status W/U Status Risk Notes Problem 1172752 Former smoker (Z87.891) Active confirmed He has a strategy to prevent relapse in times of stress and illness. We discussed this at some length today. Problem 488253676 Overweight (E66.3) Active confirmed He has lost 12 pounds since his last visit and his body mass index is 27. We discussed ways progress her weight loss could be continued. We reviewed the elements of a healthy diet and exercise. Problem 81280156 Left hip pain (M25.552) Active confirmed I have referred him back to the orthopedic service to consider a left hip replacement. Problem 360057497 Mixed hyperlipidemia (E78.2) Active confirmed Comprehensive blood work with a fasting lipid profile has been ordered. We discussed the elements of a healthy diet today. Problem 786797302 Nocturia (R35.1) Active confirmed Problem Erectile dysfunction (disorder) (841100497) Erectile dysfunction, unspecified erectile dysfunction type (N52.9) Active confirmed This problem has been addressed and he is responding to oral medication. Problem 39640935 Essential hypertension (I10) Active confirmed His blood pressure is currently in the normal range. He has lost 12 pounds. I recommended aggressive weight loss and sodium restriction. No change in his medications as necessary today. Problem 936032132 Mild intermittent asthma without complication (J45.20) Active confirmed He has used his inhaler occasionally but he is comfortable most of the day. No change in his regimen as needed. 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 He will let me know if this becomes an issue. Problem 550978485 History of left inguinal hernia (Z98.890) Active confirmed No hernia was detected today on the examination. Vital Signs Heart Rate 75 /min 03/13/2025 Temperature 97.3 degrees Fahrenheit 03/13/2025 Oximetry 99 % 03/13/2025 Blood pressure diastolic 80 mm Hg 03/13/2025 Height 68 in 03/13/2025 Blood pressure systolic 136 mm Hg 03/13/2025 Weight 191 lbs 03/13/2025 BMI 29.04 kg/m2 03/13/2025 Encounters Encounter Location Date Provider Diagnosis Sudhakar Gonzalez III, MD [address] [place] [address] [place] [address] 03/13/2025 Sudhakar Gonzalez Essential hypertensi on I10 ; Pain of left hip M25.552 and Pre-op exam Z01.818 Sudhakar Gonzalez III, MD [address] [place] [address] [place] [address] 11/08/2024 Sudhakar Gonzalez Essential hypertensi on I10 ; Left hip pain M25.552 ; Mixed hyperlipidemia E78.2 ; Overweight E66.3 ; Nocturia R35.1 ; Erectile dysfunction, unspecified erectile dysfunction type N52.9 ; Mild intermittent asthma without complication J45.20 ; Spondylosis of cervical region without myelopathy or radiculopathy M47.812 ; Former smoker Z87.891 and History of left inguinal hernia Z98.890 Sudhakar Gonzalez III, MD [address] [place] [address] [address] [place] [address] 10/18/2024 Sudhakar Gonzalez Assessments Encounter Date Diagnosis [...] Pain of left hip (ICD-10 - M25.552) 11/08/2024 Mixed hyperlipidemia (ICD-10 - E78.2) Comprehensive blood work with a fasting lipid profile has been ordered. We discussed the elements of a healthy diet today. 03/13/2025 Pre-op exam (ICD-10 - Z01.818) 11/08/2024 Overweight (ICD-10 - E66.3) He has [...] 05/02/2019 PROFILE, RANDOM (COMPREHENSIVE METABOLIC ) 02/06/2020 PROFILE, RANDOM (COMPREHENSIVE METABOLIC ) 03/13/2025 LIPID PANEL 05/02/2019 LIPID PANEL 02/06/2020 LIPID PANEL 12/21/2018 LIPID PANEL 12/20/2019 PSA, TOTAL 12/20/2019 PSA, TOTAL 11/08/2024 CBC w DIFF 12/20/2019 CBC w DIFF 03/13/2025 CBC w DIFF 11/08/2024 CBC w DIFF 05/02/2019 CBC w DIFF 02/06/2020 CBC w DIFF 12/21/2018 PROTHROMBIN TIME (PT, INR) 03/13/2025 PARTIAL THROMBOPLASTIN TIME (PTT) 2024 XR CHEST 2 VIEW PA & LAT 11/08/2024 Complete Blood Count Auto Diff Prothrombin Time INR 03/13/2025 Partial Thromboplastin Time 03/13/2025 Comprehensive Met. Panel 03/13/2025 Lipid Panel 11/08/2024 ECG 12 lead EKG 11/08/2024 ECG 12 lead EKG 03/13/2025 Hemoglobin A1c 03/13/2025 Next Appt Details Provider Name:Sudhakar Gonzalez, 04/10/2025 03:00:00 PM, [address], [place], [address], Provider Name:Sudhakar Gonzalez, 11/10/2025 03:30:00 PM, [address] [place] [address] [address], [place], [address], Insurance Providers Payer Name Payer Address Payer Phone Subscriber Number Group Number Insured Name Patient Relationship to Insured Coverage Start Date Coverage End Date [employer] [address] [address] [place] [phone] [id number] Julia Lopez Spouse - patient is the spouse of the insured Medical (General) History Medical History History ICD Code asthma essential hypertension mixed hyperlipidemia cervical spondylosis erectile dysfunction 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 BMI 27 history of repaired left inguinal hernia former smoker colonoscopy Surgical History Surgery Date(Month/Year) colonoscopy, [facility], Dr. Dmitri Gao, negative findings 2017 right hip replacement, [facility], Dr. Rubio, aseptic necrosis left inguial hernia repair, [facility], Dr. Allie Francis
--- OUTSIDE RECORDS SUMMARY | 2025-03-13 18:39 | XMS_ITS | Patient Health Record ---
Author Organization [facility] Address [address] [place] [address] Care Team Providers Care Software Testing Specialist Name Role Phone Sudhakar Gonzalez MD Primary [...] Problem Status W/U Status Risk Notes Problem 643186246 Colon cancer screening (Z12.11) Active confirmed Problem 390450642 Encounter for other preprocedural examination (Z01.818) Active confirmed Vital Signs Temperature 98.6 degrees Fahrenheit 02/02/2025 Blood pressure diastolic 01 mm Hg 02/02/2025 Height 68 in 02/02/2025 Blood pressure systolic 001 mm Hg 02/02/2025 Weight 188 lbs 02/02/2025 BMI 28.58 kg/m2 02/02/2025 Encounters Encounter Location Date Provider Diagnosis [facility] [address] [place] [address] 02/02/2025 Dmitri Gao Jr Colon cancer screening Z12.11 and Encounter for other preprocedural examination Z01.818 [facility] [address] [place] [address] 02/21/2025 Dmitri Gao Jr [facility] [address] [place] [phone] 03/01/2025 Dmitri Gao Jr Assessments Encounter Date Diagnosis (ICD Code) Assessment Notes Treatment Notes Treatment Clinical Notes Section Notes 02/02/2025 Colon cancer screening (ICD-10 - Z12.11) We discussed colonoscopy today. We discussed risks and benefits of the procedure today. He is advised to stop Aleve 1 week before the procedure. 02/02/2025 Encounter for other preprocedural examination (ICD-10 - Z01.818) We discussed colonoscopy today. We discussed risks and benefits of the procedure today. He is advised to stop Aleve 1 week before the procedure. Plan Of Treatment Future Test Test Name Order Date COLONOSCOPY 09/30/2018 COLONOSCOPY 02/02/2025 Insurance Providers Payer Name Payer Address Payer Phone Subscriber Number Group Number Insured Name Patient Relationship to Insured Coverage Start Date Coverage End Date [employer] (No Referra l) [address] [address] [place] [address] [id number] ROXANA DRUMMOND Self - patient is the insured 2023 Medical (General) History Medical History History ICD Code hypertension elevated cholesterol Surgical History Surgery Date(Month/Year) hip replacement, right left inguinal herniorrhaphy
--- OUTSIDE RECORDS SUMMARY | 2025-03-13 18:39 | XMS_ITS | Clinical Summary ---
Author Organization [facility] Address [address] [place] [address] Phone Care Team Providers Care Mill Crane Operator Name Role Phone Sudhakar Gonzalez MD Primary Care Provider [phone] Allergies No known active allergies Medications lisinopril [...] 02/21/2008 ZOSTER VACCINES (1 of 2) 02/21/2008 INFLUENZA VACCINE (#1) 2025 COVID-19 VACCINE ( - 2024-2 6 season) 2025 06/12/2021, 10/13/2020, 09/20/2020 RSV VACCINE (1 - [...] topic Medical Devices Not on file Insurance [facility] AETNA PPO [facility] AETNA PPO [facility] PPO [facility]ETNA PPO [facility] T PPO [facility] AETNA PPO [employer] Care Teams Mill Crane Operator Relationship Specialty Start Date End Date Sudhakar Gonzalez MD [address] [place] [id number] PCP - General Medical Oncology 09/21/23 Additional Source Comments The information contained in this document represents components of the legal health record. It is not the complete legal health record.[facility]
[2025-03-14 05:17] LABS: Hemoglobin A1C 161.1026 umol/L; Total Hemoglobin (HGBA1C) 3774.7600 umol/L
== END 2025-03-13 15:57 | disposition home or self-care (01) ==
LOC: HO.LAB 15:56
PROVIDERS: PCP Internal Medicine Medical Oncology; Visit Provider Internal Medicine Medical Oncology
DX: I10 Essential (primary) hypertension (principal); M25.552 Pain in left hip; Z51.81 Encounter for therapeutic drug level monitoring; Z13.1 Encounter for screening for diabetes mellitus
CPT/HCPCS: 36415; 80053; 83036; 85025; 85610; 85730

== ENCOUNTER → 2025-03-14 12:35 | Outpatient (REF) | payer OTHER, SELFPAY ==
--- OUTSIDE RECORDS SUMMARY | 2024-11-08 10:00 | XMS_ITS ---
Author Organization Sudhakar Gonzalez III, MD Address [address] [place] [address] Care Team Providers Care Nursing Secretary Name Role Phone Sudhakar Gonzalez Primary Care Provider [phone] Allergies Allergen (clinical drug ingredient) Drug/Non Drug Allergy documented on EMR Reaction Allergy Type Onset Date Status Pollen (e.g. tree, grass) Unknown Allergy Active Results Component Value Reference Range Notes URINE DIP STICK Reviewed date:11/08/2024 01:44:20 PM Interpretation: Performing Lab: Notes/Report: SG 1.025 1.005 - 1.025 pH 5.0 5.0 - 9.0 AZUL Negative Negative - NIT negative Negative - PRO 30 Negative - Trace GLU Negative Negative - KET 160 Negative - UBG 0.2 0.1 - 1.8 ONEL Negative 0.2 - 1.3 BLD Positive Negative - Reason For Referral Reason evaluate and treatme nt ? surgery needed left hip pain Diagnosis 1 Left hip pain (M25.5 52) Referral Organization Sudhakar Gonzalez III, MD Referring Provider First Name Sudhakar Referring Provider Last Name Carlos Referring Provider Speciality Internal M edicine Referred Provider [place] Referred Provider Specialty Orthopedic S urgery General Mayra Shannon 11/14/2024 09:35:21 AM > Referral, covered sheet, progress note faxed. Referral Priority Routine Referral Appointment Date 01/02/2025 Reason screening colonoscop y over due Diagnosis 1 Colon cancer screeni ng (Z12.11) Referral Organization Sudhakar Gonzalez III, MD Referring Provider First Name Sudhakar Referring Provider Last Name Carlos Referring Provider Speciality Internal M edicine Referred Provider Dmitri Gao Referred Provider Specialty Gastroentero logy General Notes Sho Ellison PROGRAM MANAGER RN 11/08 02:54:54 PM > I called Dr Gao office made patient appt for 02/02/2025 T 3:15PM with Dr Gao for consultation then the coloscopy will be scheduled / appt information called and mailed to patient Referral Priority Routine Referral Appointment Date 02/02/2025 REASON FOR VISIT Annual Exam Medications Medication SIG (Take, Route, Frequency, Duration) Notes Start Date End Date Status Simvastatin 40 MG 1 tablet Orally in t he evening for 90 days Active Lisinopril 10 MG TAKE 1 TABLET BY MERT TH EVERY DAY Active Viagra 100 MG 1 tablet as needed O rally Once a day for 30 days Active Primatene Mist 0.125 MG/ACT 2 puffs Inhalation 6 hours As needed Active Albuterol Sulfate HFA 108 (90 Base) MCG/ACT 1 puff as needed Inhalation every 4 hrs 11/08/2019 Active Social History Tobacco Use: Social History Observation Description Date Details (start date - stop date) Former Smoker NA - NA Tobacco Control (Standard) Question Answer Notes Tobacco use: Former smoker How long has it been since you last smoked? Grea ter than 10 years Additional Findings: Tobacco non-user Ex-cigaret te smoker AUDIT-C (Standard) Question Answer Notes Did you have a drink contain ing alcohol in the past year? Yes How often did you have six o r more drinks on one occasion in the past year? 2 to 4 times a month (2 points) How many drinks did you have on a typical day when you were drinking in the past year? 1 or 2 drinks (0 point) How often did you have a dri nk containing alcohol in the past year? Never (0 point) Points 2 Interpretation Negative Vital Signs Temperature 98.2 degrees Fahrenheit 11/09/19 25 Blood pressure systolic 133 mm Hg 11/09/19 25 Blood pressure diastolic 79 mm Hg 025 Heart Rate 73 /min 11/08/2024 Height 68 in 11/08/2024 Weight 182 lbs 11/08/2024 BMI 27.67 kg/m2 11/08/2024 Encounters Encounter Location Date Provider Diagnosis Sudhakar Gonzalez III, MD [address] [place] [address] [place] [address] 11/08/2024 Sudhakar Gonzalez Essential hypertensi on I10 ; Left hip pain M25.552 ; Mixed hyperlipidemia E78.2 ; Overweight E66.3 ; Nocturia R35.1 ; Erectile dysfunction, unspecified erectile dysfunction type N52.9 ; Mild intermittent asthma without complication J45.20 ; Spondylosis of cervical region without myelopathy or radiculopathy M47.812 ; Former smoker Z87.891 and History of left inguinal hernia Z98.890 Assessments Encounter Date Diagnosis (ICD Code) Assessment Notes Treat ment Notes Treatment Clinical Notes 11/08/2024 Essential hypertension (ICD-10 - I10) His blood pressure is currently in the normal range. He has lost 12 pounds. I recommended aggressive weight loss and sodium restriction. No change in his medications as necessary today. 11/08/2024 Left hip pain (ICD-1 0 - M25.552) I have referred him back to the orthopedic service to consider a left hip replacement. 11/08/2024 Mixed hyperlipidemia (ICD-10 - E78.2) Comprehensive blood work with a fasting lipid profile has been ordered. We discussed the elements of a healthy diet today. 11/08/2024 Overweight (ICD-10 - E66.3) He has lost 12 pounds since his last visit and his body mass index is 27. We discussed ways progress her weight loss could be continued. We reviewed the elements of a healthy diet and exercise. 11/08/2024 Nocturia (ICD-10 - R35.1) 11/08/2024 Erectile dysfunction , unspecified erectile dysfunction type (ICD-10 - N52.9) This problem has been addressed and he is responding to oral medication. 11/08/2024 Mild intermittent asthma without complication (ICD-10 - J45.20) He has used his inhaler occasionally but he is comfortable most of the day. No change in his regimen as needed. 11/08/2024 Spondylosis of cervical region without myelopathy or radiculopathy (ICD-10 - M47.812) His neck has not been painful lately. He will let me know if this becomes an issue. 11/08/2024 Former smoker (ICD-1 0 - Z87.891) He has a strategy to prevent relapse in times of stress and illness. We discussed this at some length today. 11/08/2024 History of left inguinal hernia (ICD-10 - Z98.890) No hernia was detected today on the examination. Plan Of Treatment Medication Medication Name Sig Start Date Stop Date Notes Simvastatin 40 MG 1 tablet Orally in t he evening for 90 days Lisinopril 10 MG TAKE 1 TABLET BY MERT TH EVERY DAY Viagra 100 MG 1 tablet as needed O rally Once a day for 30 days Primatene Mist 0.125 MG/ACT 2 puffs Inhalation 6 hours Albuterol Sulfate HFA 108 (9 0 Base) MCG/ACT 1 puff as needed Inhalation every 4 hrs 11/08/2019 Pending Test Test Name Order Date PROFILE, FASTING (COMPREHENSIVE METABOLI C) 11/08/2024 PSA, TOTAL 11/08/2024 CBC w DIFF 11/08/2024 XR CHEST 2 VIEW PA & LAT 11/08/2024 Lipid Panel 11/08/2024 ECG 12 lead EKG 11/08/2024 Referrals Referral Date Details 11/08/2024 11/08/2024, evaluate and treatment ? surgery needed left hip pain, [facility] 11/08/2024 11/08/2024, screenin g colonoscopy over due, Dmitri Gao Next Appt Details Follow Up: after patient goe s to [facility], Reason: OV review labs cxr ekg Provider Name:Sudhakar Gonzalez, 04/10/2025 03:00:00 PM, [address] [place] [address] [address], [place], [address], Provider Name:Sudhakar Gonzalez, 11/10/2025 03:30:00 PM, [address] [place] [address] [address], [place], [address], Progress Notes * Rodney DRUMMONDDOB:[birth year] (64 yo M)Acc No.[id number]:11/08/2024 Progress Notes Patient: Rodney ESPARZA Provider: Alphonso Gonzalez MD :1960 A ge:64 Y S ex:Male Date:11/08/2024 Address:[address] [place] [address], [id number] Subjective: * Chief Complaints: * A nnual Exam * HPI: D epression Screening: Estela whiteside returns to the office at the age of 64, for his annual physical examination. He is due for a colonoscopy in the near future. 10 years ago he had a right hip replacement and now the left hurts so much that he wants to have it replaced. The previous surgery was done by orthopedics at [facility]. His last colonoscopy was at [facility]. He has been referred to GI and orthopedics for these purposes. He has no new complaints and feels generally healthy and well otherwise. PHQ-9 L ittle interest or pleasure in doing things?Not at all F eeling down, depressed, or hopeless N ot at all T rouble falling or staying asleep, or sleeping too much N ot at all F eeling tired or having little energy N ot at all P oor appetite or overeating N ot at all F eeling bad about yourself or that you are a failure, or have let yourself or your family down N ot at all T rouble concentrating on things, such as reading the newspaper or watching television N ot at all M oving or speaking so slowly that other people could have noticed; or the opposite, being so fidgety or restless that you have been moving around a lot more than usual N ot at all T houghts that you would be better off or of hurting yourself in some way N ot at all T otal Score 0 C OVID-19 Screening: Questions H ave you had any new onset fever, chills, cough, congestion, sore throat, shortness of breath, muscle aches? N o S QUENTIN Questions: SDOH Questions I n the past year have you been worried about losing your housing? N o I n the past year have you or any family members you live with been unable to get any of the following when it was really needed? Check all that apply: N one F all Risk Screening: Fall History H ave you had any falls with injury in the past year? N o H ave you had two or more falls in the past year? N o F all Risk Assessment: N o falls in the past year * ROS: G eneral/Constitutional: pain l eft hip, otherwise only normal aches and pains. C hills d enies. F atigue a dmits. F ever d enies. E NT: Decreased hearing d enies. R espiratory: Cough d enies. C ardiovascular: Chest pain with exertion d enies. D yspnea on exertion?denies. S hortness of breath d enies. G astrointestinal: Constipation o ccasional. D ecreased appetite d enies. D iarrhea d enies. H eartburn d enies. N ausea d enies. R ectal bleeding d enies. V omiting d enies. H ematology: bruising d enies. p etechiae d enies. S wollen glands n one have been noted. G enitourinary: Frequent urination o nce a night. M usculoskeletal: Muscle aches d enies. P ainful joints d enies. S ciatica d enies. W eakness d enies. S kin: Itching d enies. R kevan d enies. S kin lesion(s)?denies. N eurologic: Difficulty speaking d enies. D izziness d enies.?Headache d enies. L ow back pain d enies. P sychiatric: Depressed mood d enies. * Medical History: * Surgical History: l eft inguial hernia repair, [facility], Dr. Allie Francis 2007right hip replacement, [facility], Dr. Rubio, aseptic necrosis colonoscopy, [facility], Dr. Dmitri Gao, negative findings 2017 * Hospitalization/Major Diagno stic Procedure: D enies Past Hospitalization * Family History: F ather: 65 yrs, Adult-onset diabetes mellitus, retro-orbital melanoma, diagnosed with DM, Cancer. M other: 78 yrs, Adult-onset diabetes mellitus, colon cancer, diagnosed with DM, Cancer. 2 sister(s) - healthy. 2 son(s) , 2 daughter(s) - healthy. . His sisters are healthy and well. His 4 children are healthy and well. * Social History: T obacco Use: T obacco Control (Standard) T obacco use: F ormer smoker H ow long has it been since you last smoked??Greater than 10 years A dditional Findings: Tobacco non-user E x-cigarette smoker D rugs/Alcohol: D rugs H ave you used drugs other than those for medical reasons in the past 12 months? N o D rug/Alcohol: A CUONG-C (Standard) D id you have a drink containing alcohol in the past year? Y es H ow often did you have six or more drinks on one occasion in the past year? 2 to 4 times a month (2 points) H ow many drinks did you have on a typical day when you were drinking in the past year? 1 or 2 drinks (0 point) H ow often did you have a drink containing alcohol in the past year? N ever (0 point) P oints 2 I nterpretation N egative Estela whiteside was born at [facility] in [place], [place]. He has been to Julia for 18 years. They have no children but he has 4 children from a previous marriage. He is a [employer] working in [place]. * Medications: T akingPrimatene Mist 0.125 MG/ACT Aerosol 2 puffs Inhalation 6 hours As neededViagra 100 MG Tablet 1 tablet as needed Orally Once a day Albuterol Sulfate HFA 108 (90 Base) MCG/ACT Aerosol Solution 1 puff as needed Inhalation every 4 hrs Simvastatin 40 MG Tablet TAKE 1 TABLET BY MOUTH EVERY EVENING Lisinopril 10 MG Tablet TAKE 1 TABLET BY MOUTH EVERY DAY Taking Primatene Mist 0.125 MG/ACT Aerosol 2 puffs Inhalation 6 hours As neededTaking Viagra 100 MG Tablet 1 tablet as needed Orally Once a day Taking Albuterol Sulfate HFA 108 (90 Base) MCG/ACT Aerosol Solution 1 puff as needed Inhalation every 4 hrs Taking Simvastatin 40 MG Tablet TAKE 1 TABLET BY MOUTH EVERY EVENING Taking Lisinopril 10 MG Tablet TAKE 1 TABLET BY MOUTH EVERY DAY DiscontinuedProAir HFA 108 (90 Base) MCG/ACT Aerosol Solution 2 puffs as needed Inhalation every 6 hrs Medication List reviewed and reconciled with the patientDiscontinued ProAir HFA 108 (90 Base) MCG/ACT Aerosol Solution 2 puffs as needed Inhalation every 6 hrs Medication List reviewed and reconciled with the patient * Allergies: P ollen (e.g. tree, grass)no[Allergies Verified] Objective: * Vitals: H t: 68, Wt:182, BMI:27.67, BP:133/79, HR:73, Temp:98.2, Wt-k.55. * P ast Orders: L ab:URINE DIP STICK (Order Date - 11/08/2024) (Collection Date & Time - 11/08/2024) Value Reference Range SG 1.025 1.005 - 1.025 pH 5.0 5.0 - 9.0 AZUL Negative Negative - NIT negative Negative - PRO 30 Negative - Trace GLU Negative Negative - KET 160 Negative - UBG 0.2 0.1 - 1.8 ONEL Negative 0.2 - 1.3 BLD Positive Negative - * Examination: G eneral Examination: GENERAL APPEARANCE: p leasant, well nourished, well developed, in no acute distress, calm and relaxed, overweight, man. HEAD: a traumatic, normocephalic. EYES: e stew, perrla, anicteric, conjugate. EARS: n ormal. NOSE: s eptum intact. ORAL CAVITY: n ormal, unremarkable. NECK/THYROID: n o jugular venous distention, no carotid bruit, thyroid normal. LYMPH NODES: n o enlarged lymph nodes,spleen normal. SKIN: n o suspicious lesions, anicteric. HEART: n o clicks, gallops, murmurs, or rubs, regular rhythm, S1, S2 normal, no s3, or vascular bruits. LUNGS: c lear to auscultation . BREASTS: no masses palpable bilaterally. ABDOMEN: b owel sounds normal, no ascites, no organomegaly, no mass, overweight. RECTAL EXAM: n ot examined. MUSCULOSKELETAL: e xtremities unremarkable, no clubbing, cyanosis or edema, Mild decreased range of motion of neck, Pain to range of motion left hip, gait normal,, surgical scar right knee with normal range of motion. PERIPHERAL PULSES: n ormal. NEUROLOGIC: a lert and oriented, cranial nerves 2-12 grossly intact, deep tendon reflexes 2+ symmetrical, motor strength normal upper and lower extremities, sensory exam intact. PSYCH: a lert, oriented. Assessment: * Assessment: 1. L eft hip pain - M25.552 (Primary) N otes :I have referred him back to the orthopedic service to consider a left hip replacement. 2 . E ssential hypertension - I10 N otes :His blood pressure is currently in the normal range. He has lost 12 pounds. I recommended aggressive weight loss and sodium restriction. No change in his medications as necessary today. 3 . M ixed hyperlipidemia - E78.2 N otes :Comprehensive blood work with a fasting lipid profile has been ordered. W stevo discussed the elements of a healthy diet today. 4 . O verweight - E66.3 N otes :He has lost 12 pounds since his last visit and his body mass index is 27. We discussed ways progress her weight loss could be continued. We reviewed the elements of a healthy diet and exercise. 5 . N octuria - R35.1 6 . E rectile dysfunction, unspecified erectile dysfunction type - N52.9 N otes :This problem has been addressed and he is responding to oral medication. 7 . M ild intermittent asthma without complication - J45.20 N otes :He has used his inhaler occasionally but he is comfortable most of the day. No change in his regimen as needed. 8 . S pondylosis of cervical region without myelopathy or radiculopathy - M47.812 N otes :His neck has not been painful lately. He will let me know if this becomes an issue. 9 . F ormer smoker - Z87.891 N otes :He has a strategy to prevent relapse in times of stress and illness. We discussed this at some length today. 1 0. H istory of left inguinal hernia - Z98.890 N otes :No hernia was detected today on the examination. Plan: * Treatment: 2. E ssential hypertension Continue Viagra Tablet, 100 MG, 1 tablet as needed, Orally, Once a day, 30 days, 30 Tablet, Refills 11; C ontinue Albuterol Sulfate HFA Aerosol Solution, 108 (90 Base) MCG/ACT, 1 puff as needed, Inhalation, every 4 hrs. L AB: PROFILE, FASTING (COMPREHENSIVE METABOLIC) L AB: PSA, TOTAL L AB: CBC w DIFF L AB: Lipid Panel I maging: XR CHEST 2 VIEW PA & LAT I maging: ECG 12 lead EKG 3. M ixed hyperlipidemia L AB: PROFILE, FASTING (COMPREHENSIVE METABOLIC) L AB: PSA, TOTAL L AB: CBC w DIFF L AB: Lipid Panel 4. O verweight L AB: PROFILE, FASTING (COMPREHENSIVE METABOLIC) L AB: PSA, TOTAL L AB: CBC w DIFF L AB: Lipid Panel 5. N octuria L AB: PROFILE, FASTING (COMPREHENSIVE METABOLIC) L AB: PSA, TOTAL L AB: CBC w DIFF L AB: Lipid Panel 6. O thers Continue Lisinopril Tablet, 10 MG, TAKE 1 TABLET BY MOUTH EVERY DAY; C ontinue Simvastatin Tablet, 40 MG, 1 tablet, Orally, in the evening, 90 days, 90 Tablet, Refills 3; C ontinue Primatene Mist Aerosol, 0.125 MG/ACT, 2 puffs, Inhalation, 6 hours As needed. ? Referral To:[facility] Reason:screening colonoscopy over due * Labs: * L ab: URINE DIP STICK (Collection Date & Time - 11/08/2024) Value Reference Range S G 1.025 1.005 - 1.025 * p H 5.0 5.0 - 9.0 * L EU Negative Negative - * N IT negative Negative - * P RO 30 Negative - Trace * G BELLA Negative Negative - * K ET 160 Negative - * U BG 0.2 0.1 - 1.8 * B IL Negative 0.2 - 1.3 * B LD Positive Negative - * Procedure Codes: 8 1002 URINE-NO MICRO * Preventive Medicine: Counseling: C are goal follow-up plan: Counseling for abnormal BMI given Y es Above Normal BMI Follow-up D ietary management education, guidance, and counseling, Dietary needs education S moking/Tobacco Use Patient counseled on the dangers of tobacco use and urged to quit. 0 11/15/2024 * Follow Up: a fter patient goes to [facility] (Reason: OV review labs cxr ekg) * Images: * Sign off status: Completed true * Provider: Alphonso Gonzalez MD Date: 0 11/08/2024 Generated for Efren de la fuente/Binh/Yoladna on: 0 03/14/2025 02:55 PM EDT History and Physical Notes * HPI (History of Present Illness) Category Sub-Category Detail Notes Depression Screening PHQ-9 Little inte rest or pleasure in doing things: Not at all Feeling down, depressed, or hopeless: No t at all Trouble falling or staying asleep, or sl eeping too much: Not at all Feeling tired or having little energy: N ot at all Poor appetite or overeating: Not at all Feeling bad about yourself o r that you are a failure, or have let yourself or your family down: Not at all Trouble concentrating on thi ngs, such as reading the newspaper or watching television: Not at all Moving or speaking so slowly that other people could have noticed; or the opposite, being so fidgety or restless that you have been moving around a lot more than usual: Not at all Thoughts that you would be b hazel off or of hurting yourself in some way: Not at all Total Score: 0 Fall Risk Screening Fall History Have you had any falls with injury in the past year?: No Have you had two or more falls in the year?: No Fall Risk Assessment:: No falls in the year COVID-19 Screening Questions Have you had any new onset fever, chills, cough, congestion, sore throat, shortness of breath, muscle aches?: No SDOH Questions SDOH Questions In the past year have you been worried about losing your housing?: No In the past year have you or any family members you live with been unable to get any of the following when it was really needed? Check all that apply:: None Examination Category Sub-Category Detail Notes General Examination GENERAL APPEARANCE: pleasant , well nourished, well developed, in no acute distress, calm and relaxed, overweight, man HEAD: atraumatic, normocep halic EYES: eomi, perrla, anicte juan luis, conjugate EARS: normal NOSE: septum intact NECK/THYROID: no jugular venous di stention, no carotid bruit, thyroid normal HEART: no clicks, gallops, murmurs, or rubs, regular rhythm, S1, S2 normal, no s3, or vascular bruits LUNGS: clear to auscultatio n ABDOMEN: bowel sounds normal, no ascites, no organomegaly, no mass, overweight NEUROLOGIC: alert and oriented, cranial nerves 2-12 grossly intact, deep tendon reflexes 2+ symmetrical, motor strength normal upper and lower extremities, sensory exam intact SKIN: no suspicious lesion s, anicteric PERIPHERAL PULSES: normal BREASTS: no masses palpable b ilaterally MUSCULOSKELETAL: extremities unremark able, no clubbing, cyanosis or edema, Mild decreased range of motion of neck, Pain to range of motion left hip, gait normal,, surgical scar right knee with normal range of motion LYMPH NODES: no enlarged lymph no regis,spleen normal RECTAL EXAM: not examined PSYCH: alert, oriented ORAL CAVITY: normal, unremarkable Consultation Request Notes Referral Date Referring Provider Referred Provider Not es 11/08/2024 Sudhakar Gonzalez Ort [facility] evaluate and treatment ? surgery needed left hip pain 11/08/2024 Sudhakar Gonzalez Bernard screening colonoscopy over due
--- OUTSIDE RECORDS SUMMARY | 2024-12-21 12:45 | XMS_ITS ---
Author Organization Sudhakar Gonzalez III, MD Address [address] [place] [address] Care Team Providers Care Mat Making Machine Tender Name Role Phone Sudhakar Gonzalez Primary Care Provider [phone] REASON FOR VISIT Follow-up Encounters Encounter Location Date Provider Diagnosis Sudhakar Gonzalez III, MD [address] [place] [address] [place] [address] 12/21/2024 Sudhakar Gonzalez Plan Of Treatment Next Appt Details Provider Name:Sudhakar Gonzalez, 04/10/2025 03:00:00 PM, [address] [place] [address] [place], [address], Provider Name:Sudhakar Gonzalez, 11/10/2025 03:30:00 PM, [address] [place] [address] [place], [address], Progress Notes * Rodney DRUMMONDDOB:[birth year] (65 yo M)Acc No.[id number]:12/21/2024 Progress Notes Patient: Reina Rodney EID Provider: Alphonso Gonzalez MD :1960 A ge:64 Y S ex:Male Date:12/21/2024 Address:[address] [place], [place] [id number] Subjective: * Chief Complaints: * 1 . Follow-up. * Medical History: Objective: * Vitals: Assessment: Plan: * Treatment: * Images: * The named appointment provid er may or may not be the originator of this progress note, and it is not deemed complete until electronically signed by the appointment provider. Sign off status: Pending * Provider: Alphonso Gonzalez MD Date: 0 12/21/2024 Generated for Efren de la fuente/Binh/Yolanda on: 0 03/14/2025 02:55 PM EDT
--- OUTSIDE RECORDS SUMMARY | 2025-01-10 13:00 | XMS_ITS ---
Author Organization Sudhakar Gonzalez III, MD Address [address] [place] [address] Care Team Providers Care Inspector Pawnshop Detail Name Role Phone Sudhakar Gonzalez Primary Care Provider [phone] REASON FOR VISIT Follow-up Encounters Encounter Location Date Provider Diagnosis Sudhakar Gonzalez III, MD [address] [place] [address] [place] [address] 01/10/2025 Sudhakar Gonzalez Plan Of Treatment Next Appt Details Provider Name:Sudhakar Gonzalez, 04/10/2025 03:00:00 PM, [address] [place] [address] [place], [address], Provider Name:Sudhakar Gonzalez, 11/10/2025 03:30:00 PM, [address] [place] [address] [place], [address], Progress Notes * Rodney DRUMMONDDOB:[birth year] (65 yo M)Acc No.[id number]:01/10/2025 Progress Notes Patient: Reina Rodney EID Provider: Alphonso Gonzalez MD :1960 A ge:64 Y S ex:Male Date:01/10/2025 Address:[address] [place] [address] Subjective: * Chief Complaints: * 1 . Follow-up. * Medical History: Objective: * Vitals: Assessment: Plan: * Treatment: * Images: * The named appointment provid er may or may not be the originator of this progress note, and it is not deemed complete until electronically signed by the appointment provider. Sign off status: Pending * Provider: Alphonso Gonzalez MD Date: 0 01/10/2025 Generated for Efren de la fuente/Binh/Yolanda on: 0 03/14/2025 02:55 PM EDT
--- OUTSIDE RECORDS SUMMARY | 2025-02-06 10:30 | XMS_ITS ---
Author Organization Sudhakar Gonzalez III, MD Address [address] [place] [address] [place] [address] Care Team Providers Care Motion Picture Set Grip Name Role Phone Sudhakar Gonzalez Primary Care Provider [phone] Allergies Allergen (clinical drug ingredient) Drug/Non Drug Allergy documented on EMR Reaction Allergy Type Onset Date Status Pollen (e.g. tree, grass) Unknown Allergy Active REASON FOR VISIT Follow-up Medications Medication SIG (Take, Route, Frequency, Duration) Notes Start Date End Date Status Lisinopril 10 MG TAKE 1 TABLET BY MERT TH EVERY DAY Active Simvastatin 40 MG 1 tablet Orally in he evening Active Viagra 100 MG 1 tablet as needed O rally Once a day Active Albuterol Sulfate HFA 108 (90 Base) MCG/ACT 1 puff as needed Inhalation every 4 hrs 11/08/2019 Active Primatene Mist 0.125 MG/ACT 2 puffs Inhalation 6 hours As needed Active Social History Tobacco Use: Social History Observation Description Date Details (start date - stop date) Former Smoker NA - NA Tobacco Control (Standard) Question Answer Notes Tobacco use: Former smoker How long has it been since you last smoked? Grea ter than 10 years Additional Findings: Tobacco non-user Ex-cigaret te smoker Encounters Encounter Location Date Provider Diagnosis Sudhakar Gonzalez III, MD [address] [place] [address] [place] [id number] 02/06/2025 Sudhakar Gonzalez Essential hypertensi on I10 Assessments Encounter Date Diagnosis (ICD Code) Assessment Notes Treat ment Notes Treatment Clinical Notes 02/06/2025 Essential hypertension (ICD-10 - I10) His blood pressure is currently in the normal range. He has lost 12 pounds. I recommended aggressive weight loss and sodium restriction. No change in his medications as necessary today. Plan Of Treatment Medication Medication Name Sig Start Date Stop Date Notes Lisinopril 10 MG TAKE 1 TABLET BY MERT TH EVERY DAY Simvastatin 40 MG 1 tablet Orally in t he evening Viagra 100 MG 1 tablet as needed O rally Once a day Albuterol Sulfate HFA 108 (9 0 Base) MCG/ACT 1 puff as needed Inhalation every 4 hrs 11/08/2019 Primatene Mist 0.125 MG/ACT 2 puffs Inhalation 6 hours Next Appt Details Provider Name:Sudhakar Mayerrne, 04/10/2025 03:00:00 PM, [address] [place] [address] [address], [place], [id number], Provider Name:Sudhakar Carlos, 11/10/2025 03:30:00 PM, [address] [place] [address] [address], [place], [phone], Progress Notes * Rodney DRUMMONDDOB:[birth year] (65 yo M)Acc No.[id number]:02/06/2025 Progress Notes Patient: Reina LUOHEBER Rodney Provider: Alphonso Gonzalez MD :1960 A ge:64 Y S ex:Male Date:02/06/2025 Address:[address] [place], [place] [id number] Subjective: * Chief Complaints: * 1 . Follow-up. * HPI: C OVID-19 Screening: Questions H ave you had any new onset fever, chills, cough, congestion, sore throat, shortness of breath, muscle aches? N o * ROS: G eneral/Constitutional: pain o nly normal aches and pains. C hills d enies.?Fatigue a dmits. F ever d enies. E NT: Decreased hearing d enies. R espiratory: Cough d enies. C ardiovascular: Chest pain with exertion d enies. D yspnea on exertion?denies. S hortness of breath d enies. G astrointestinal: Constipation d enies. D ecreased appetite d enies.?Diarrhea d enies. H eartburn d enies. N ausea d enies. R ectal bleeding?denies. V omiting d enies. H ematology: bruising d enies. p etechiae d enies. S wollen glands n one have been noted. G enitourinary: Frequent urination d enies. M usculoskeletal: Muscle aches d enies. P ainful joints d enies. S ciatica d enies. W eakness d enies. S kin: Itching d enies. R kevan d enies. S kin lesion(s)?denies. N eurologic: Difficulty speaking d enies. D izziness d enies.?Headache d enies. L ow back pain d enies. P sychiatric: Depressed mood d enies. * Medical History: A sthma, Essential hypertension, Mixed hyperlipidemia, Cervical spondylosis, Erectile dysfunction, aseptic necrosis of the right hip, total knee replacement 2014, [facility], overweight. BMI 27, History of prepared left inguinal hernia, Former smoker, Colonoscopy. * Surgical History: l eft inguial hernia repair, [facility], Dr. Allie Francis , right hip replacement, [facility], Dr. Rubio, aseptic necrosis , colonoscopy, [facility], Dr. Dmitri Gao, negative findings 2017. * Hospitalization/Major Diagno stic Procedure: D enies Past Hospitalization. * Family History: F ather: 65 yrs, Adult-onset diabetes mellitus, retro-orbital melanoma, diagnosed with Cancer, DM. M other: 78 yrs, Adult-onset diabetes mellitus, [...] dditional Findings: Tobacco non-user E x-cigarette smoker Estela whiteside was born at [facility] in [place], [place]. He has been to Julia for 18 years. They have no children but he has 4 children from a previous marriage. He is a [id number] working in [place]. * Medications: Tanesha mai Lisinopril 10 MG Tablet TAKE 1 TABLET BY MOUTH EVERY DAY , Taking Simvastatin 40 MG Tablet 1 tablet Orally in the evening , Taking Viagra 100 MG Tablet 1 tablet as needed Orally Once a day , Taking Albuterol Sulfate HFA 108 (90 Base) MCG/ACT Aerosol Solution 1 puff as needed Inhalation every 4 hrs , Taking Primatene Mist 0.125 MG/ACT Aerosol 2 puffs Inhalation 6 hours As needed, Medication List reviewed and reconciled with the patient * Allergies: P ollen (e.g. tree, grass). Objective: * Vitals: * Examination: G eneral Examination: GENERAL APPEARANCE: p asael, well nourished, well developed, in no acute distress, calm and relaxed. HEAD: a traumatic, normocephalic. EYES: e stew, [...] sounds normal, no ascites, no organomegaly, no mass. RECTAL EXAM: n ot examined. MUSCULOSKELETAL: e xtremities unremarkable, no clubbing, cyanosis or edema. PERIPHERAL PULSES: n ormal. NEUROLOGIC: a lert and oriented, cranial nerves 2-12 grossly intact, deep tendon reflexes 2+ symmetrical, motor strength normal upper and lower extremities, sensory exam intact. PSYCH: a lert, oriented. Assessment: * Assessment: 1. E ssential hypertension - I10 N otes :His blood pressure is currently in the normal range. He has lost 12 pounds. I recommended aggressive weight loss and sodium restriction. No change in his medications as necessary today. Plan: * Treatment: 2. O thers Continue Lisinopril Tablet, 10 MG, TAKE 1 TABLET BY MOUTH EVERY DAY; C ontinue Simvastatin Tablet, 40 MG, 1 tablet, Orally, in the evening; C ontinue Primatene Mist Aerosol, 0.125 MG/ACT, 2 puffs, Inhalation, 6 hours As needed. * Images: * The named appointment provid er may or may not be the originator of this progress note, and it is not deemed complete until electronically signed by the appointment provider. Sign off status: Pending * Provider: Alphonso Gonzalez MD Date: 02/06/2025 Generated for Efren de la fuente/Binh/Tyraitting on: 03/14/2025 02:55 PM EDT History and Physical Notes * HPI (History of Present Illness) Category Sub-Category Detail Notes COVID-19 Screening Questions Have you had any new onset fever, chills, cough, congestion, sore throat, shortness of breath, muscle aches?: No Examination Category Sub-Category Detail Notes General Examination GENERAL APPEARANCE: pleasant , well nourished, well developed, in no acute distress, calm and relaxed HEAD: atraumatic, normocep halic EYES: eomi, perrla, anicte juan luis, conjugate EARS: normal NOSE: septum intact NECK/THYROID: no jugular venous di stention, no carotid bruit, thyroid normal HEART: no clicks, gallops, murmurs, or rubs, regular rhythm, S1, S2 normal, no s3, or vascular bruits LUNGS: clear to auscultatio n ABDOMEN: bowel sounds normal, no ascites, no organomegaly, no mass NEUROLOGIC: alert and oriented, cranial nerves 2-12 grossly intact, deep tendon reflexes 2+ symmetrical, motor strength normal upper and lower extremities, sensory exam intact SKIN: no suspicious lesion s, anicteric PERIPHERAL PULSES: normal BREASTS: no masses palpable b ilaterally MUSCULOSKELETAL: extremities unremark able, no clubbing, cyanosis or edema LYMPH NODES: no enlarged lymph no regis,spleen normal RECTAL EXAM: not examined PSYCH: alert, oriented ORAL CAVITY: normal, unremarkable
--- OUTSIDE RECORDS SUMMARY | 2025-02-28 08:10 | XMS_ITS ---
Author Organization [facility] Address [address] [place] [id number] Care Team Providers Care Tonguer Name Role Phone Carlos WELLER, Sudhakar Primary Care Provider Dmitri Villatoro Jr [phone] REASON FOR VISIT screening Encounters Encounter Location Date Provider Diagnosis [facility] [address] [place] [phone] 02/28/2025 Dmitri Gao Jr Plan Of Treatment No Information Progress Notes * ROXANA DRUMMOND EDOB:1959 (65 yo M)Acc No.[id number]:02/28/2025 COLON WITH MAC Patient: Reina LUOHEBER ROXANA Conrad Provider: Gali Gao MD :1960 A ge:65 Y S ex:Male Date:02/28/2025 Address:[address] [place], [place] [id number] Pcp:Sudhakar Gonzalez MD Subjective: * Chief Complaints: * 1 . Screening. * Medical History: Objective: * Vitals: Assessment: Plan: * Treatment: * * The named appointment provid er may or may not be the originator of this progress note, and it is not deemed complete until electronically signed by the appointment provider. Sign off status: Pending * Provider: Gali Gao MD Date: 02/28/2025 Generated for Prosperi ng/Fasaulg/eTransmitting on: 0 03/14/2025 02:56 PM EDT
--- OUTSIDE RECORDS SUMMARY | 2025-03-13 11:30 | XMS_ITS ---
Author Organization uSdhakar Gonzalez III, MD Address [address] [place] [address] Care Team Providers Care Assistant Manager Of Operations Name Role Phone Sudhakar Gonzalez Primary Care Provider Allergies Allergen (clinical drug ingredient) Drug/Non Drug Allergy documented on EMR Reaction Allergy Type Onset Date Status Pollen (e.g. tree, grass) Unknown Allergy Active Results Component Value Reference Range Notes Hemoglobin A1c Reviewed date:03/14/2025 09:49:57 AM Interpretation: Performing Lab:[facility], [address] [place] [id number] Notes/Report: Hemoglobin A1c % 6.1 <6.0 % Hemoglobin A1C Reference Range Adults: 4.8 - 6.0 % Non diabetic: < 6.0 % Goal: < 7.0 % Additional Action Suggested: > 8.0 % Note: Hemoglobin A1c results are invalid for patients with abnormal amounts of HbF. Blood transfusions may impact the HbA1c concentration in the patient sample. Estimated Average Glucose 128 eAG = Estimated average glucose which is %A1C expressed as average glucose, using the formula of the S5Y-Whbcnws Average Glucose study (ADAG), Diabetes Care, Vol.31,#8, Feb. 2007 REASON FOR VISIT Clearance for Left Hip replacement at [facility] on 03/17/2025, Hypertension, Asthma, Cervical spondylosis, Arthritis left took Medications Medication SIG (Take, Route, Frequency, Duration) Notes Start Date End Date Status Primatene Mist 0.125 MG/ACT 2 puffs Inhalation 6 hours As needed Active Lisinopril 10 MG TAKE 1 TABLET BY EVERY DAY Active Simvastatin 40 MG 1 tablet Orally in t he evening Active Viagra 100 MG 1 [...] Problem Status W/U Status Risk Notes Problem 156212242 Benign prostatic hyperplasia without lower urinary tract symptoms (N40.0) Active confirmed Problem [id number] Pre-op exam (Z01.818) Active confirmed He is given medical clearance today without reservation and may have Gen. anesthesia. EKG remains pending. 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 They are going to perform a left hip replacement March 17, 2025. I have seen this patient and examined him carefully today. I have reviewed his blood work which is normal. An EKG is pending at this time. Assuming the EKG shows no contraindication to surgery he is medically cleared for the surgery with a average risk of a healthy man his age. Vital Signs Temperature 97.3 degrees Fahrenheit 03/13/20 25 Blood pressure systolic 136 mm Hg 03/13/20 25 Blood pressure diastolic 80 mm Hg 025 Heart Rate 75 /min 03/13/2025 Height 68 in 03/13/2025 Weight 191 lbs 03/13/2025 BMI 29.04 kg/m2 03/13/2025 Oximetry 99 % 03/13/2025 Will Encounters Encounter Location Date Provider Diagnosis Sudhakar Gonzalez III, MD [address] [place] [address] [place] [address] 03/13/2025 Sudhakar Gonzalez Pain of left hip M25 .552 ; Pre-op exam Z01.818 ; Essential hypertension I10 ; Mild intermittent asthma without complication J45.20 ; Mixed hyperlipidemia E78.2 ; Spondylosis of cervical region without myelopathy or radiculopathy M47.812 ; Benign prostatic hyperplasia without lower urinary tract symptoms N40.0 ; History of left inguinal hernia Z98.890 ; Overweight E66.3 and Former smoker Z87.891 Assessments Encounter Date Diagnosis (ICD Code) Assessment Notes T reatment Notes Treatment Clinical Notes 03/13/2025 Pain of left hip (ICD-10 - M25.552) He has severe 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 They are going to perform a left hip replacement March 17, 2025. I have seen this patient and examined him carefully today. I have reviewed his blood work which is normal. An EKG is pending at this time. Assuming the EKG shows no contraindication to surgery he is medically cleared for the surgery with a average risk of a healthy man his age. 03/13/2025 Pre-op exam (ICD-10 - Z01.818) He is given medical clearance today without reservation and may have Gen. anesthesia. EKG remains pending. 03/13/2025 Essential hypertension (ICD-10 - I10) His blood pressure is currently in the normal range. He has lost 12 pounds. I recommended aggressive weight loss and sodium restriction. No change in his medications as necessary today. 03/13/2025 Mild intermittent asthma without complication (ICD-10 - J45.20) He has used his inhaler occasionally but he is comfortable most of the day. No change in his regimen as needed. 03/13/2025 Mixed hyperlipidemia (ICD-10 - E78.2) Comprehensive blood work with a fasting lipid profile has been ordered. We discussed the elements of a healthy diet today. 03/13/2025 Spondylosis of cervical region without myelopathy or radiculopathy (ICD-10 - M47.812) His neck has not been painful lately. He will let me know if this becomes an issue. 03/13/2025 Benign prostatic hyperplasia without lower urinary tract symptoms (ICD-10 - N40.0) 03/13/2025 History of left inguinal hernia (ICD-10 - Z98.890) No hernia was detected today on the examination. 03/13/2025 Overweight (ICD-10 - E66.3) He has lost 12 pounds since his last visit and his body mass index is 27. We discussed ways progress her weight loss could be continued. We reviewed the elements of a healthy diet and exercise. 03/13/2025 Former smoker (ICD-10 - Z87.891) He has a strategy to prevent relapse in times of stress and illness. We discussed this at some length today. Plan Of Treatment Medication Medication Name Sig Start Date Stop Date Notes Primatene Mist 0.125 MG/ACT 2 puffs Inhalation 6 hours Lisinopril 10 MG TAKE 1 TABLET BY MERT TH EVERY DAY Simvastatin 40 MG 1 tablet Orally in t he evening Viagra 100 MG 1 tablet as needed O rally Once a day Albuterol Sulfate HFA 108 (9 0 Base) MCG/ACT 1 puff as needed Inhalation every 4 hrs 11/08/2019 Pending Test Test Name Order Date PROFILE, RANDOM (COMPREHENSIVE METABOLIC ) 03/13/2025 CBC w DIFF 03/13/2025 PROTHROMBIN TIME (PT, INR) 03/13/2025 PARTIAL THROMBOPLASTIN TIME (PTT) 2024 ECG 12 lead EKG 03/13/2025 Next Appt Details Follow Up: 4 Weeks, Reason: ov review labs Provider Name:Sudhakar Gonzalez, 04/10/2025 03:00:00 PM, [address] [place] [address] [address], [place], [address], Provider Name:Sudhakar Gonzalez, 11/10/2025 03:30:00 PM, [address] [place] [address] [address], [place], [phone], Progress Notes * Rodney DRUMMONDDOB:[birth year] (65 yo M)Acc No.[id number]:03/13/2025 Patient: Reina Rodney EID Provider: Alphonso Gonzalez MD :1960 A ge:65 Y S ex:Male Date:03/13/2025 Address:[address] [place], [place] [id number] Subjective: * Chief Complaints: * C learance for Left Hip replacement at [facility] on 03/17/2025HypertensionAsthmaCervical spondylosisArthritis left took * HPI: C OVID-19 Screening: He comes in for medical clearance for a left hip replacement scheduled for March 17, 2025 at the [facility]. He denies any recent chest pain, palpitations or shortness of breath. He has occasional nocturia but not more than once a night.? He has had no asthma recently and was not wheezing today. Comprehensive blood work was available and was reviewed. His hemoglobin A1c was 6.1. The blood work was unremarkable.? An EKG was ordered and is pending at this time. A ssuming the EKG shows no contraindications he is given medical clearance for a left hip replacement under general anesthesia without reservation. Questions H ave you had any new onset fever, chills, cough, congestion, sore throat, shortness of breath, muscle aches? N o * ROS: G eneral/Constitutional: pain l eft [...] Muscle aches d enies. P ainful joints l eft hip.?Sciatica d enies. W eakness d enies. S kin: Itching d enies. R kevan d enies. S kin lesion(s)?denies. N eurologic: Difficulty speaking d enies. D izziness d enies.?Headache d enies. L ow back pain d enies. P sychiatric: Depressed mood d enies. * Medical History: * Surgical History: l eft inguial hernia repair, [facility], Dr. Allie Francis 2007right hip replacement, [facility], Dr. Rubio, aseptic necrosis colonoscopy, [facility], Dr. Dmitri Gao, negative findings 2017 [...] x-cigarette smoker Estela whiteside was born at [facility] in [place], [place]. He has been to Julia for 18 years. They have no children but he has 4 children from a previous marriage. He is a [employer] working in [place]. * Medications: T akingLisinopril 10 MG Tablet TAKE 1 TABLET BY MOUTH EVERY DAY Simvastatin 40 MG Tablet 1 tablet Orally in the evening Viagra 100 MG Tablet 1 tablet as needed Orally Once a day Albuterol Sulfate HFA 108 (90 Base) MCG/ACT Aerosol Solution 1 puff as needed Inhalation every 4 hrs Primatene Mist 0.125 MG/ACT Aerosol 2 puffs Inhalation 6 hours As neededMedication List reviewed and reconciled with the patientTaking Lisinopril 10 MG Tablet TAKE 1 TABLET BY MOUTH EVERY DAY Taking Simvastatin 40 MG Tablet 1 tablet Orally in the evening Taking Viagra 100 MG Tablet 1 tablet as needed Orally Once a day Taking Albuterol Sulfate HFA 108 (90 Base) MCG/ACT Aerosol Solution 1 puff as needed Inhalation every 4 hrs Taking Primatene Mist 0.125 MG/ACT Aerosol 2 puffs Inhalation 6 hours As neededMedication List reviewed and reconciled with the patient * Allergies: P ollen (e.g. tree, grass)no[Allergies Verified] Objective: * Vitals: H t: 68, Wt:191, BMI:29.04, BP:136/80, HR:75, Temp:97.3, Oxygen sat %:99, Wt-k.64. Will. * P ast Orders: Lab:Complete Blood Count Aut o Diff * Collection Date 03/13/2025 01/27/2025 Collection Time 04:14 PM 12:34 PM Order Date 03/13/2025 01/27/2025 White Blood Count 9.0 (Ref Range: 4.8-10.8 X10*3/uL) 6.8 (Ref Range: 4.8-10.8 X10*3/uL) Red Blood Count 4.95 (Ref Range: 4.60-5.80 X10*6/uL) 4.81 (Ref Range: 4.60-5.80 X10*6/uL) Hemoglobin 14.3 (Ref Range: 14.0-18.0 g/dl) 14.4 (Ref Range: 14.0-18.0 g/dl) Hematocrit 44.5 (Ref Range: 42.0-52.0 %) 42.8 (Ref Range: 42.0-52.0 %) Mean Corpuscular Volume 89.9 (Ref Range: 80.0-98.0 fL) 89.0 (Ref Range: 80.0-98.0 fL) Mean Corpuscular Hemoglobin 28.9 (Ref Range: 27.0-33.0 pg) 29.9 (Ref Range: 27.0-33.0 pg) Mean Corpuscular HGB Conc 32.1 (Ref Range: 31.0-36.0 g/dl) 33.6 (Ref Range: 31.0-36.0 g/dl) Red Cell Distribution Width 12.7 (Ref Range: 11.0-16.0 %) 12.6 (Ref Range: 11.0-16.0 %) Platelet Count 328 (Ref Range: 160-400 X10*3/uL) 308 (Ref Range: 160-400 X10*3/uL) Mean Platelet Volume 9.2 L (Ref Range: 9.4-12.4 fL) 9.4 (Ref Range: 9.4-12.4 fL) Neutrophils Percent Auto 54.0 (Ref Range: 45-73 %) 43.9 L (Ref Range: 45-73 %) Imm Gran Pct Auto 0.4 (Ref Range: 0.0-0.4 %) 0.3 (Ref Range: 0.0-0.4 %) Lymphocytes Percent Auto 35.0 (Ref Range: 20-40 %) 43.3 H (Ref Range: 20-40 %) Monocytes Percent Auto 7.7 (Ref Range: 2-11 %) 9.5 (Ref Range: 2-11 %) Eosinophils Percent Auto 2.3 (Ref Range: 0-4 %) 2.1 (Ref Range: 0-4 %) Basophils Percent Auto 0.6 (Ref Range: 0-2 %) 0.9 (Ref Range: 0-2 %) NRBC Pct Auto 0.0 (Ref Range: 0.0-0.2 /100WBC) 0.0 (Ref Range: 0.0-0.2 /100WBC) Neutrophils Absolute Auto 4.8 (Ref Range: 2.0-8.3 x10*3/uL) 3.0 (Ref Range: 2.0-8.3 x10*3/uL) Imm Gran Abs Auto 0.04 H (Ref Range: 0.00-0.03 X10*3/uL) 0.02 (Ref Range: 0.00-0.03 X10*3/uL) Lymphocytes Absolute Auto 3.1 (Ref Range: 1.2-4.9 X10*3/uL) 2.9 (Ref Range: 1.2-4.9 X10*3/uL) Monocytes Absolute Auto 0.7 (Ref Range: 0.1-1.2 X10*3/uL) 0.6 (Ref Range: 0.1-1.2 X10*3/uL) Eosinophils Absolute Auto 0.2 (Ref Range: 0.0-0.4 X10*3/uL) 0.1 (Ref Range: 0.0-0.4 X10*3/uL) Basophils Absolute Auto 0.1 (Ref Range: 0.0-0.2 X10*3/uL) 0.1 (Ref Range: 0.0-0.2 X10*3/uL) NRBC Abs Auto 0.000 (Ref Range: 0.0-0.012 X10*3/uL) 0.000 (Ref Range: 0.0-0.012 X10*3/uL) ???Lab:Comprehensive Vardaman. Panel Fast (Order Date - 01/27/2025) (Collection Date & Time - 01/27/2025 12:34 PM)?ValueReference Range?Goeham343074- 145 - mmol/L?Bilirubin Total0.60.0-1.0 - mg/dL?Aspartate Amino Jxzqdsqjhhu717-73 - U/L?Alanine Aorxfoicypbovuoj005-07 - U/L?Total Protein7.36.5-8.0 - g/dL?Albumin Level4.43.5-5.0 - g/dL?Alkaline Fudimduqweq9578-989 - U/L?Potassium4.53.3-5.1 - mmol/L?Tbbmwsvc161 96-108 - mmol/L?Carbon Olsjqqi4352-49 - mmol/L?Anion Ghf4331-18 - ?Blood Urea Sbvcbcvq97H6-70 - mg/dL?Creatinine0.920.5-1.4 - mg/dL ?Estimated Glomerular Filt Rate> 60-?Glucose Ensdxxm2283-31 - mg/dL?Calcium9.58.4-10.2 - mg/dL ???Lab:PSA,Total (Free>4and<10) (Order Date - 01/27/2025) (Collection Date & Time - 01/27/2025 12:34 PM)?ValueReference Range?PSA,Total (Free>4and<10)0.810.00-4.00 - ng/mL ???Lab:Lipid Panel (Order Date - 01/27/2025) (Collection Date & Time - 01/27/2025 12:34 PM)?ValueReference Range?Bteytknowjecp628S<150 - mg/dL?Moezwyfnlsb132Y<200 - mg/dL?LDL Cholesterol Dinboxmiop118Y <100 - mg/dL?HDL Cacmmsynxzv74D>40 - mg/dL ???Lab:Prothrombin Time INR (Order Date - 03/13/2025) (Collection Date & Time - 03/13/2025 04:14 PM)?ValueReference Range?Prothrombin Time10.6L 10.9-12.4 - SEC?INTERNATIONAL NORM RATIO0.90.9-1.1 - ???Lab:Partial Thromboplastin Time (Order Date - 03/13/2025) (Collection Date & Time - 03/13/2025 04:14 PM)?ValueReference Range?Partial Thromboplastin Time29.226.7-34.1 - SEC ???Lab:Comprehensive Met. Panel (Order Date - 03/13/2025) (Collection Date & Time - 03/13/2025 04:14 PM)?ValueReference Range?Uercas531395-669 - mmol/L?Bilirubin Total0.60.0-1.0 - mg/dL?Aspartate Amino Rrahhudzfev508-30 - U/L?Alanine Tvbxrfitahzmyucj936-83 - U/L?Total Protein8.06.5-8.0 - g/dL?Albumin Level4.93.5-5.0 - g/dL?Alkaline Ayjpkpgzhsv2462-049 - U/L?Potassium4.73.3-5.1 - mmol/L?Lhwgdeie656 96-108 - mmol/L?Carbon Ghdbwzf9085-57 - mmol/L?Anion Feg1733-63 - ?Blood Urea Rqkmqctb60F1-00 - mg/dL?Creatinine0.880.5-1.4 - mg/dL ?Estimated Glomerular Filt Rate> 60-?Glucose Uobkax1192-411 - mg/dL?Calcium9.88.4-10.2 - mg/dL ???Lab:Hemoglobin A1c (Order Date - 03/13/2025) (Collection Date & Time - 03/13/2025 04:14 PM)?ValueReference Range?Hemoglobin A1c %6.1H<6.0 - %?Estimated Average Wphyhkw928- mg/dL * Examination: G eneral Examination: GENERAL APPEARANCE: p asael, well nourished, well developed, in no acute distress, calm and relaxed: overweight: man. HEAD: a traumatic, normocephalic. EYES: e [...] sounds normal, no ascites, no organomegaly, no mass: overweight, Left inguinal herniorrhaphy scar. RECTAL EXAM: n ot examined. MUSCULOSKELETAL: no clubbing, cyanosis or edema, Right hip replacement scar, pain to range of motion left hip. PERIPHERAL PULSES: n ormal. NEUROLOGIC: a lert and oriented, cranial nerves 2-12 grossly intact, deep tendon reflexes 2+ symmetrical, motor strength normal upper and lower extremities, sensory exam intact. PSYCH: a lert, oriented. Assessment: * Assessment: 1. P ain of left hip - M25.552 (Primary) N otes :He has severe 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 They are going to perform a left hip replacement March 17, 2025. I have seen this patient and examined him carefully today. I have reviewed his blood work which is normal. An EKG is pending at this time. Assuming the EKG shows no contraindication to surgery he is medically cleared for the surgery with a average risk of a healthy man his age. 2 . P re-op exam - Z01.818 N otes :He is given medical clearance today without reservation and may have Gen. anesthesia. EKG remains pending. 3 . E ssential hypertension - I10 N otes :His blood pressure is currently in the normal range. He has lost 12 pounds. I recommended aggressive weight loss and sodium restriction. No change in his medications as necessary today. 4 . M ild intermittent asthma without complication - J45.20 N otes :He has used his inhaler occasionally but he is comfortable most of the day. No change in his regimen as needed. 5 . M ixed hyperlipidemia - E78.2 N otes :Comprehensive blood work with a fasting lipid profile has been ordered. We discussed the elements of a healthy diet today. 6 . S pondylosis of cervical region without myelopathy or radiculopathy - M47.812 N otes :His neck has not been painful lately. He will let me know if this becomes an issue. 7 . B enign prostatic hyperplasia without lower urinary tract symptoms - N40.0? 8. H istory of left inguinal hernia - Z98.890 N otes :No hernia was detected today on the examination. 9 . O verweight - E66.3 N otes :He has lost 12 pounds since his last visit and his body mass index is 27. We discussed ways progress her weight loss could be continued. We reviewed the elements of a healthy diet and exercise. 1 0. F ormer smoker - Z87.891 N otes :He has a strategy to prevent relapse in times of stress and illness. We discussed this at some length today. Plan: * Treatment: Value Reference Range H emoglobin A1c % 6.1 H <6.0 - % * E stimated Average Glucose 128 - mg/dL ?Imaging: ECG 12 lead EKG2.?Pre-op exam?LAB: PROFILE, RANDOM (COMPREHENSIVE METABOLIC) ?LAB: CBC w DIFF ?LAB: PROTHROMBIN TIME (PT, INR) ?LAB: PARTIAL THROMBOPLASTIN TIME (PTT) ?LAB: Hemoglobin A1c (Collection Date & Time - 03/13/2025 04:14 PM)* Value Reference Range H emoglobin A1c % 6.1 H <6.0 - % * E stimated Average Glucose 128 - mg/dL ?Imaging: ECG 12 lead EKG3.?Essential hypertension? Continue Viagra Tablet, 100 MG, 1 tablet as needed, Orally, Once a day;?Continue Albuterol Sulfate HFA Aerosol Solution, 108 (90 Base) MCG/ACT, 1 puff as needed, Inhalation, every 4 hrs.?LAB: PROFILE, RANDOM (COMPREHENSIVE METABOLIC) ?LAB: CBC w DIFF ?LAB: PROTHROMBIN TIME (PT, INR) ?LAB: PARTIAL THROMBOPLASTIN TIME (PTT) ?LAB: Hemoglobin A1c (Collection Date & Time - 03/13/2025 04:14 PM)* Value Reference Range H emoglobin A1c % 6.1 H <6.0 - % * E stimated Average Glucose 128 - mg/dL ?Imaging: ECG 12 lead EKG4.?Others? Continue Lisinopril Tablet, 10 MG, TAKE 1 TABLET BY MOUTH EVERY DAY;?Continue Simvastatin Tablet, 40 MG, 1 tablet, Orally, in the evening;?Continue Primatene Mist Aerosol, 0.125 MG/ACT, 2 puffs, Inhalation, 6 hours As needed.?? * Procedure Codes: 9 4760 MEASURE BLOOD OXYGEN LEVEL * Preventive Medicine: Counseling: C are goal follow-up plan: Counseling for abnormal BMI given Y es Above Normal BMI Follow-up D ietary management education, guidance, and counseling S moking/Tobacco Use Patient counseled on the dangers of tobacco use and urged to quit. 0 03/13/2025 * Follow Up: 4 Weeks (Reason: ov review labs) * Images: * Sign off status: Completed true * Provider: Alphonso Gonzalez MD Date: 0 03/13/2025 Generated for Efren de la fuente/Binh/Tyraitting on: 0 03/14/2025 02:56 PM EDT History and Physical Notes * HPI (History of Present Illness) Category Sub-Category Detail Notes COVID-19 Screening Questions Have you had any new onset fever, chills, cough, congestion, sore throat, shortness of breath, muscle aches?: No Examination Category Sub-Category Detail Notes General Examination GENERAL APPEARANCE: pleasant , well nourished, well developed, in no acute distress, calm and relaxed: overweight: man HEAD: atraumatic, normocep halic EYES: eomi, perrla, anicte juan luis, conjugate EARS: normal NOSE: septum intact NECK/THYROID: no jugular venous di stention, no carotid bruit, thyroid normal HEART: no clicks, gallops, murmurs, or rubs, regular rhythm, S1, S2 normal, no s3, or vascular bruits LUNGS: clear to auscultatio n ABDOMEN: bowel sounds normal, no ascites, no organomegaly, no mass: overweight, Left inguinal herniorrhaphy scar NEUROLOGIC: alert and oriented, cranial nerves 2-12 grossly intact, deep tendon reflexes 2+ symmetrical, motor strength normal upper and lower extremities, sensory exam intact SKIN: no suspicious lesion s, anicteric PERIPHERAL PULSES: normal BREASTS: no masses palpable b ilaterally MUSCULOSKELETAL: no clubbing, cyanosi s or edema, Right hip replacement scar, pain to range of motion left hip LYMPH NODES: no enlarged lymph no regis,spleen normal RECTAL EXAM: not examined PSYCH: alert, oriented ORAL CAVITY: normal, unremarkable
--- NOTE | 2025-03-14 12:41 | ECG_ITS ---
Test Reason : PREOP, HTN Blood Pressure : */* mmHG Vent. Rate : 63 BPM Atrial Rate : 63 BPM P-R Int : 178 ms QRS Dur : 84 ms QT Int : 380 ms P-R-T Axes : 60 29 40 degrees QTcB Int : 388 ms Normal sinus rhythm Normal ECG When compared with ECG of 20-Aug-2007 12:59, No significant change was found Referred By: Sudhakar Gonzalez Electronically Signed By: DALTON GOMEZ MD
--- OUTSIDE RECORDS SUMMARY | 2025-03-14 14:55 | XMS_ITS | Patient Health Record ---
Author Organization Sudhakar Gonzalez III, MD Address [address] [place] [address] Care Team Providers Care Fagoter Name Role Phone Sudhakar Gonzalez Primary Care [...] ff Reviewed date:02/01/2025 09:20:46 AM Interpretation: Performing Lab:[facility], [address] [place] [phone] Notes/Report: White Blood Count 6.8 4.8-10.8 X10*3/uL [...] NRBC Abs Auto 0.000 0.0-0.012 X10*3/uL Comprehensive [place]. Panel Fa st Reviewed date:02/01/2025 09:20:46 AM Interpretation: Performing Lab:[facility], [address] [place] [phone] Notes/Report: Sodium 138 135-145 mmol/L Potassium 4.5 [...] Panel Reviewed date:02/01/2025 09:20:46 AM Interpretation: Performing Lab:[facility], [address] [place] [phone] Notes/Report: Triglycerides 163 <150 mg/dL Desirable Triglyceride: [...] (Free>4and<10) Reviewed date:02/01/2025 09:20:46 AM Interpretation: Performing Lab:[facility], [address] [place] [phone] Notes/Report: PSA,Total (Free>4and<10) 0.81 0.00-4.00 ng/mL A [...] Pimentel Alinity i Chemiluminescent Microparticle Immunoassay (CMIA) Hemoglobin A1c Reviewed date:03/14/2025 09:49:57 AM Interpretation: Performing Lab:[facility], [address] [place] [phone] Notes/Report: Hemoglobin A1c % 6.1 <6.0 % [...] average glucose, using the formula of the [id number]-[id number] Average Glucose study (ADAG), Diabetes Care, Vol.31,#8, Feb. 2007 Complete Blood Count Auto Di ff Reviewed date:03/14/2025 09:49:57 AM Interpretation: Performing Lab:[facility], [address] [place] [phone] Notes/Report: White Blood Count 9.0 4.8-10.8 X10*3/uL [...] Auto 0.000 0.0-0.012 X10*3/uL Prothrombin Time INR Reviewed date:03/14/2025 09:49:57 AM Interpretation: Performing Lab:[facility], [address] [place] [phone] Notes/Report: Prothrombin Time 10.6 10.9-12.4 SEC INTERNATIONAL [...] valves: 2.5 - 3.5 Partial Thromboplastin Time Reviewed date:03/14/2025 09:49:57 AM Interpretation: Performing Lab:[facility], [address] [place] [phone] Notes/Report: Partial Thromboplastin Time 29.2 26.7-34.1 SEC Comprehensive Met. Panel Reviewed date:03/14/2025 09:49:57 AM Interpretation: Performing Lab:[facility], [address] [place] [phone] Notes/Report: Sodium 139 135-145 mmol/L Potassium 4.7 [...] Last Name Gonzalez Referring Provider Speciality Internal edicine Referred Provider [place], [facility] Referred Provider Specialty Orthopedic S fanny General Notes Mayra Gates 11/14/2024 09:35:21 AM > Referral, covered sheet, progress note faxed. Referral Priority Routine Referral Appointment Date 01/02/2025 Reason screening colonoscop y over due Diagnosis 1 Colon cancer screeni sudhakar (Z12.11) Referral Organization Sudhakar Gonzalez III, MD Referring Provider First Name Sudhakar Referring Provider Last Name Carlos Referring Provider Speciality Internal edicine Referred Provider Dmitri Gao Referred Provider Specialty Gastroentero logy General Notes Sho Ellison CMA 11/08 02:54:54 PM > I called Dr [...] has it been since you last smoked? Ludya ter than 10 years Additional Findings: Tobacco [...] Problem Status W/U Status Risk Notes Problem 3029513 Former smoker (Z87.891) Active confirmed He has a strate gy to prevent relapse in times of stress and illness. We discussed this at some length today. Problem 760600063 Overweight (E66.3) Active confirmed He has lost 12 pounds since his last visit and his body mass index is 27. We discussed ways progress her weight loss could be continued. We reviewed the elements of a healthy diet and exercise. Problem 705363654 Mixed hyperlipidemia (E78.2) Active confirmed Comprehensive blood work with a fasting lipid profile has been ordered. We discussed the elements of a healthy diet today. Problem Erectile dysfunction (disorder) (110672006) Erectile dysfunction, unspecified erectile dysfunction type (N52.9) Active confirmed This problem garcia s been addressed and he is responding to oral medication. Problem 53416746 Essential hypertension (I10) Active confirmed His blood pressure is currently in the normal range. He has lost 12 pounds. I recommended aggressive weight loss and sodium restriction. No change in his medications as necessary today. Problem 257995801 Mild intermittent asthma without complication (J45.20) Active confirmed He has used his inhaler occasionally but he is comfortable most of the day. No change in his regimen as needed. 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 He will let me know if this becomes an issue. Problem 659202230878528 Pre-op exam (Z01.818) Active confirmed He is given medical clearance today without reservation and may have Gen. anesthesia. EKG remains pending. Problem 419951217 History of left inguinal hernia (Z98.890) Active confirmed No hernia was detected today on the examination. 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 They are going to perform a [...] a healthy man his age. Vital Signs Heart Rate 75 /min 03/13/2025 Will Temperature 97.3 degrees Fahrenheit 03/13/2025 Will Oximetry 99 % 03/13/2025 Will Blood pressure diastolic 80 mm Hg 03/13/2025 Sukumar l Height 68 in 03/13/2025 Will Blood pressure systolic 136 mm Hg 03/13/2025 Will Weight 191 lbs 03/13/2025 Will BMI 29.04 kg/m2 03/13/2025 Will Encounters Encounter Location Date Provider Diagnosis Sudhakar Gonzalez III, MD [address] [place] [address] [place] [phone] 11/08/2024 Sudhakar Gonzalez Essential hypertensi on I10 ; Left hip pain M25.552 ; Mixed hyperlipidemia E78.2 ; Overweight E66.3 ; Nocturia R35.1 ; Erectile dysfunction, unspecified erectile dysfunction type N52.9 ; Mild intermittent asthma without complication J45.20 ; Spondylosis of cervical region without myelopathy or radiculopathy M47.812 ; Former smoker Z87.891 and History of left inguinal hernia Z98.890 Sudhakar Gonzalez III, MD [address] [place] [address] [place] [phone] 03/13/2025 Sudhakar Gonzalez Pain of left hip M25 .552 ; Pre-op exam Z01.818 ; Essential hypertension I10 ; Mild intermittent asthma without complication J45.20 ; Mixed hyperlipidemia E78.2 ; Spondylosis of cervical region without myelopathy or radiculopathy M47.812 ; Benign prostatic hyperplasia without lower urinary tract symptoms N40.0 ; History of left inguinal hernia Z98.890 ; Overweight E66.3 and Former smoker Z87.891 Sudhakar Gonzalez III, MD [address] [place] [address] [place] [address] 10/18/2024 Sudhakar Gonzalez Assessments Encounter Date Diagnosis (ICD Code) Assessment Notes T reatment Notes Treatment Clinical Notes 11/08/2024 Left hip pain (ICD-10 - M25.552) I have referred him back to the orthopedic service to consider a left hip replacement. 11/08/2024 Essential hypertension (ICD-10 - I10) His blood pressure is currently in the normal range. He has lost 12 pounds. I recommended aggressive weight loss and sodium restriction. No change in his medications as necessary today. 03/13/2025 Pre-op exam (ICD-10 - Z01.818) He is given medical clearance today without reservation and may have Gen. anesthesia. EKG remains pending. 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 They are going to perform a [...] risk of a healthy man his age. 11/08/2024 Mixed hyperlipidemia (ICD-10 - E78.2) Comprehensive blood work with a fasting lipid profile has been ordered. We discussed the elements of a healthy diet today. 03/13/2025 Essential hypertension (ICD-10 - I10) His blood pressure is currently in the normal range. He has lost 12 pounds. I recommended aggressive weight loss and sodium restriction. No change in his medications as necessary today. 11/08/2024 Overweight (ICD-10 - E66.3) He has lost 12 pounds since his last visit and his body mass index is 27. We discussed ways progress her weight loss could be continued. We reviewed the elements of a healthy diet and exercise. 03/13/2025 Mild intermittent asthma without complication (ICD-10 - J45.20) He has used his inhaler occasionally but he is comfortable most of the day. No change in his regimen as needed. 11/08/2024 Nocturia (ICD-10 - R35.1) 03/13/2025 Mixed hyperlipidemia (ICD-10 - E78.2) Comprehensive blood work with a fasting lipid profile has been ordered. We discussed the elements of a healthy diet today. 11/08/2024 Erectile dysfunction, unspecified erectile dysfunction type (ICD-10 - N52.9) This problem has been addressed and he is responding to oral medication. 03/13/2025 Spondylosis of cervical region without myelopathy or radiculopathy (ICD-10 - M47.812) His neck has not been painful lately. He will let me know if this becomes an issue. 11/08/2024 Mild intermittent asthma without complication (ICD-10 - J45.20) He has used his inhaler occasionally but he is comfortable most of the day. No change in his regimen as needed. 03/13/2025 Benign prostatic hyperplasia without lower urinary tract symptoms (ICD-10 - N40.0) 11/08/2024 Spondylosis of cervical region without myelopathy or radiculopathy (ICD-10 - M47.812) His neck has not been painful lately. He will let me know if this becomes an issue. 03/13/2025 History of left inguinal hernia (ICD-10 - Z98.890) No hernia was detected today on the examination. 11/08/2024 Former smoker (ICD-10 - Z87.891) He has a strategy to prevent relapse in times of stress and illness. We discussed this at some length today. 03/13/2025 Overweight (ICD-10 - E66.3) He has lost 12 pounds since his last visit and his body mass index is 27. We discussed ways progress her weight loss could be continued. We reviewed the elements of a healthy diet and exercise. 11/08/2024 History of left inguinal hernia (ICD-10 - Z98.890) No hernia was detected today on the examination. 03/13/2025 Former smoker (ICD-10 - Z87.891) He has a strategy to prevent relapse in times of stress and illness. We discussed this at some length today. Plan Of Treatment Pending Test Test Name [...] Lipid Panel 11/08/2024 ECG 12 lead EKG 03/13/2025 ECG 12 lead EKG 11/08/2024 Next Appt Details Provider Name:Sudhakar Carlos, 04/10/2025 03:00:00 PM, [address] [place] [address] [address], [place], [phone], Provider Name:Sudhakar Mayerrne, 11/10/2025 03:30:00 PM, [address] [place] [address] [address], [place], [phone], Insurance Providers Payer Name Payer Address Payer Phone Subscriber Number Group Number Insured Name Patient Relationship to Insured Coverage Start Date Coverage End Date [employer] [address] [address] [place] [address] [id number] Julia Lopez Spouse - patient is the spouse of the insured Medical (General) History Medical History History ICD Code asthma essential hypertension mixed hyperlipidemia cervical spondylosis erectile dysfunction 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 BMI 27 history of repaired left inguinal hernia former smoker colonoscopy Surgical History Surgery Date(Month/Year) colonoscopy, [facility], Dr. Dmitri Gao, negative findings 2017 right hip replacement, [facility], Dr. Rubio, aseptic necrosis left inguial hernia repair, [facility], Dr. Allie Francis
--- OUTSIDE RECORDS SUMMARY | 2025-03-14 14:55 | XMS_ITS | Patient Health Record ---
Author Organization [facility] Address [address] [place] [phone] Care Team Providers Care Practice Lead Name Role Phone Sudhakar Gonzalez MD Primary Care Provider UnavailDmitri Bernstein Jr Unavailable [phone] Allergies Allergen (clinical drug ingredient) Drug/Non Drug [...] Problem Status W/U Status Risk Notes Problem 123194498 Colon cancer screening (Z12.11) Active confirmed Problem 134120024 Encounter for other preprocedural examination (Z01.818) Active confirmed Vital Signs Temperature 98.6 degrees Fahrenheit 02/02/2025 Blood pressure diastolic 01 mm Hg 02/02/2025 Height 68 in 02/02/2025 Blood pressure systolic 001 mm Hg 02/02/2025 Weight 188 lbs 02/02/2025 BMI 28.58 kg/m2 02/02/2025 Encounters Encounter Location Date Provider Diagnosis [facility] [address] [place] [phone] 02/02/2025 Dmitri Gao Jr Colon cancer screening Z12.11 and Encounter for other preprocedural examination Z01.818 [facility] [address] [place] [phone] 02/21/2025 Dmitri Gao Jr [facility] [address] [place] [phone] 03/01/2025 Dmitri Gao Jr Assessments Encounter Date [...] Date [employer] (No Referra l) [address] [address] [place] [address] [id number] ROXANA DRUMMOND Self - patient is the insured 2023 Medical (General) History Medical History History ICD Code hypertension elevated cholesterol Surgical History Surgery Date(Month/Year) hip replacement, right left inguinal herniorrhaphy
--- OUTSIDE RECORDS SUMMARY | 2025-03-14 14:56 | XMS_ITS | Clinical Summary ---
Author Organization [facility] Address [address] [place] [address] Phone Care Team Providers Care Rehab Nursing Tech Name Role Phone Sudhakar Gonzalez MD Primary Care Provider [phone] Allergies No known active allergies Medications lisinopril [...] topic Medical Devices Not on file Insurance [facility] AETNA PPO [facility] AETNA PPO [facility]NA PPO [facility] AETNA PPO [facility] T PPO [facility] AETNA PPO [employer] Care Teams Rehab Nursing Tech Relationship Specialty Start Date End Date Sudhakar Gonzalez MD [address] [place] [id number] PCP - General Medical Oncology 09/21/23 Additional Source Comments The information contained in this document represents components of the legal health record. It is not the complete legal health record.[facility]
== END ==
LOC: HO.CARD 12:35
PROVIDERS: PCP Internal Medicine Medical Oncology; Visit Provider Internal Medicine Medical Oncology
DX: Z01.810 Encounter for preprocedural cardiovascular examination (principal); I10 Essential (primary) hypertension; M25.552 Pain in left hip
CPT/HCPCS: 93005

== ENCOUNTER → 2025-03-14 12:41 | Outpatient (BNV) | payer OTHER, SELFPAY | PROVIDERS: PCP Internal Medicine Medical Oncology; Visit Provider Internal Medicine Cardiovascular Disease | DX: Z01.810 Encounter for preprocedural cardiovascular examination (principal); I10 Essential (primary) hypertension | CPT/HCPCS: 93010 ==